=== PATIENT | male | born 1930 | race Caucasian/White ===

== ENCOUNTER 2017-02-22 15:24 | Outpatient (CLI) | payer MEDICARE | END 2017-02-22 15:25 | disposition home or self-care (01) | LOC: LAB 15:24 | PROVIDERS: ATTEND Urology | DX: C61 Malignant neoplasm of prostate (principal) | CPT/HCPCS: 84153 ==

== ENCOUNTER 2017-08-26 10:48 | Outpatient (CLI) | payer MEDICARE | END 2017-08-26 10:49 | disposition home or self-care (01) | LOC: LAB 10:48 | PROVIDERS: ATTEND Urology | DX: C61 Malignant neoplasm of prostate (principal) | CPT/HCPCS: 36415; 84153 ==

== ENCOUNTER 2018-03-10 11:46 | Outpatient (CLI) | payer MEDICARE | END 2018-03-10 11:47 | disposition home or self-care (01) | LOC: LAB 11:46 | PROVIDERS: ATTEND Urology | DX: C61 Malignant neoplasm of prostate (principal) | CPT/HCPCS: 36415; 84153 ==

== ENCOUNTER 2018-05-06 09:15 | Outpatient (CLI) | payer MEDICARE ==
[2018-05-06 17:12] LABS: BASOPHILS % (AUTO) 0.3 %; EOSINOPHILS # (AUTO) 0.2 10^3/uL (0.0-0.7); EOSINOPHILS % (AUTO) 4.1 %; LYMPHOCYTES # (AUTO) 1.5 10^3/uL (1.5-3.5); MEAN CORPUSCULAR HEMOGLOBIN 33.1 pg (27.0-31.0); MEAN CORPUSCULAR VOLUME 97.2 fL (80.0-94.0); MEAN PLATELET VOLUME 7.3 fL (7.4-11.4); MONOCYTES # (AUTO) 0.3 10^3/uL (0.0-1.0); NEUTROPHILS # (AUTO) 3.5 10^3/uL (1.5-6.6); NEUTROPHILS % (AUTO) 62.6 %; PLT - PLATELET COUNT 196 10^3/uL (130-450); RED BLOOD COUNT 3.92 10^6/uL (4.70-6.10); RED CELL DISTRIBUTION WIDTH 13.2 % (12.0-15.0); WHITE BLOOD COUNT 5.6 x10^3/uL (4.8-10.8)
[2018-05-06 17:28] LABS: ALBUMIN 4.2 g/dL (3.2-5.5); ALBUMIN/GLOBULIN RATIO 1.4 (1.0-2.2); ALKALINE PHOSPHATASE 48 IU/L (42-121); ALT ALANINE AMINOTRANSFERASE 21 IU/L (10-60); AST ASPARTATE AMINOTRANSFERASE 24 IU/L (10-42); BILIRUBIN,TOTAL 0.9 mg/dL (0.2-1.0); BUN - BLOOD UREA NITROGEN 14 mg/dL (6-20); CARBON DIOXIDE - CO2 23 mmol/L (21-32); CHLORIDE 104 mmol/L (101-111); CHOL/HDL RATIO 4.8 (<5.0); CHOLESTEROL 143 mg/dL; CREATININE 1.5 mg/dL (0.6-1.2); GFR - MDRD 44 (>89); GLUCOSE 105 mg/dL (70-100); HDL CHOLESTEROL 30 mg/dL; LDL CHOLESTEROL,CALCULATED 78 mg/dL; LDL/HDL RATIO 2.6 (<3.6); SODIUM 136 mmol/L (135-145); TOTAL PROTEIN 7.1 g/dL (6.7-8.2); VLDL CHOLESTEROL 35 mg/dL
[2018-05-06 17:38] LABS: THYROID STIMULATING HORMONE 3.43 uIU/mL (0.34-5.60)
== END 2018-05-06 09:16 | disposition home or self-care (01) ==
LOC: LAB.R 09:15
PROVIDERS: ATTEND Physician Assistant Medical
DX: F32.9 Major depressive disorder, single episode, unspecified (principal); Z79.899 Other long term (current) drug therapy; I25.10 Atherosclerotic heart disease of native coronary artery without angina pectoris; E78.2 Mixed hyperlipidemia; R53.83 Other fatigue; N18.9 Chronic kidney disease, unspecified
CPT/HCPCS: 80053; 80061; 82306; 82533; 82607; 83721; 84153; 84443; 85025

== ENCOUNTER 2018-09-17 10:14 | Outpatient (CLI) | payer MEDICARE | END 2018-09-17 10:15 | disposition home or self-care (01) | LOC: LAB 10:14 | PROVIDERS: ATTEND Urology | DX: C61 Malignant neoplasm of prostate (principal) | CPT/HCPCS: 36415; 84153 ==

== ENCOUNTER 2019-04-08 10:59 | Outpatient (CLI) | payer MEDICARE | END 2019-04-08 11:00 | disposition home or self-care (01) | LOC: LAB 10:59 | PROVIDERS: ATTEND Urology | DX: Z85.46 Personal history of malignant neoplasm of prostate (principal) | CPT/HCPCS: 36415; 84153 ==

== ENCOUNTER 2019-07-22 08:30 | Outpatient (CLI) | payer MEDICARE ==
[2019-07-22 09:14] LABS: ALBUMIN 4.1 g/dL (3.2-5.5); ALBUMIN/GLOBULIN RATIO 1.5 (1.0-2.2); ALKALINE PHOSPHATASE 60 IU/L (42-121); ALT ALANINE AMINOTRANSFERASE 21 IU/L (10-60); AST ASPARTATE AMINOTRANSFERASE 23 IU/L (10-42); BILIRUBIN,TOTAL 0.6 mg/dL (0.2-1.0); BUN - BLOOD UREA NITROGEN 16 mg/dL (6-20); CALCIUM 9.2 mg/dL (8.5-10.3); CARBON DIOXIDE - CO2 24 mmol/L (21-32); CHLORIDE 104 mmol/L (101-111); CHOL/HDL RATIO 3.8 (<5.0); CHOLESTEROL 124 mg/dL; CREATININE 1.5 mg/dL (0.6-1.2); GFR - MDRD 44 (>89); GLUCOSE 104 mg/dL (70-100); HDL CHOLESTEROL 33 mg/dL; LDL CHOLESTEROL,CALCULATED 60 mg/dL; LDL/HDL RATIO 1.8 (<3.6); SODIUM 137 mmol/L (135-145); TOTAL PROTEIN 6.9 g/dL (6.7-8.2); VLDL CHOLESTEROL 31 mg/dL
== END 2019-07-22 08:31 | disposition home or self-care (01) ==
LOC: LAB 08:30
PROVIDERS: ATTEND Internal Medicine Cardiovascular Disease
DX: E78.6 Lipoprotein deficiency (principal); I25.9 Chronic ischemic heart disease, unspecified; I35.1 Nonrheumatic aortic (valve) insufficiency
CPT/HCPCS: 36415; 80053; 80061; 83721

== ENCOUNTER 2019-10-15 11:14 | Outpatient (CLI) | payer MEDICARE | END 2019-10-15 11:15 | disposition home or self-care (01) | LOC: LAB 11:14 | PROVIDERS: ATTEND Urology | DX: C61 Malignant neoplasm of prostate (principal) | CPT/HCPCS: 36415; 84153 ==

== ENCOUNTER 2019-10-30 09:16 | Outpatient (CLI) | payer MEDICARE ==
--- NOTE | 2019-11-04 10:32 | DEXA Report ---
Reason: PROSTATE CA Procedure Date: 10/30/2019 Accession Number: [id number] / [id number] Procedure: DEX - Dexa Spine and/or Hip CPT Code: Final Report FULL RESULT: EXAM: Dexa Spine and/or Hip DATE: 10/30/2019 10:02 AM CLINICAL HISTORY: PROSTATE CA. Lupron therapy. History of osteopenia TECHNIQUE: Dual energy x-ray absorptiometry (DXA) was performed on a [employer] System. Regions measured are the AP Spine, femoral neck, and if needed forearm. COMPARISON: 08/10/2016 In accordance with the International Society for Clinical Densitometry (ISCD) guidelines, data from previous exams may be reanalyzed using current recommendations and techniques. This is done to allow a more accurate basis for comparison with the current study. FINDINGS: The data for the lumbar spine is as follows: BMD (g/cm/cm) T-SCORE Z-SCORE REGION L1 0.890 -2.3 -1.5 L2 1.086 -1.3 -0.5 L3 1.247 0.1 0.8 TOTAL 1.081 -1.1 -0.3 NOTE: All evaluable vertebrae are used for classification The data for the hip is as follows: BMD (g/cm/cm) T-SCORE Z-SCORE REGION Neck 0.822 -1.9 -0.2 TOTAL 0.888 -1.5 0.0 NOTE: The femoral neck or total proximal femur, whichever is lowest, is used for classification. DXA RESULTS SUMMARY: Spine SCAN DATE AGE BMD CHANGE VS CHANGE VS PREVIOUS PREVIOUS % 10[age]30/2019 [age] 1.081 -0.015 -1.4 08/10/2016 [age] 1.096 * Denotes significant change at the 95% confidence level. Denotes dissimilar scan types or analysis methods. DXA RESULTS SUMMARY: Hip SCAN DATE AGE BMD CHANGE VS CHANGE VS PREVIOUS PREVIOUS % 10[age]30/2019 88.8 0.888 -0.002 -0.2 08/10/2016 85.6 0.890 * Denotes significant change at the 95% confidence level. Denotes dissimilar scan types or analysis methods. IMPRESSION: THE WHO CLASSIFICATION BASED ON THE INTERNATIONAL REFERENCE STANDARD IS OSTEOPENIA, REFERENCE LEFT FEMORAL NECK. THE FRACTURE RISK IS INCREASED. RECOMMENDATION: Patients with diagnosis of osteoporosis or osteopenia should have regular bone mineral density assessment. For those eligible for Medicare, routine testing is allowed once every 2 years. Testing frequency can be increased for patients who have rapidly progressing disease or for those who are receiving medical therapy to restore bone mass. COMMENT: World Health Organization (WHO) definitions for osteoporosis and osteopenia: NORMAL BMD: T-score at -1.0 or higher, fracture risk is low OSTEOPENIA BMD: T-score between -1.0 and -2.5, fracture risk is increased. OSTEOPOROSIS BMD: T-score at -2.5 or lower, fracture risk is high. National Osteoporosis Foundation recommends: 1. Obtain adequate dietary calcium (at least 1200 mg per day) and vitamin D (400-800 international units per day). 2. Participate, as appropriate, in regular weightbearing and muscle-strengthening exercise. 3. Avoid tobacco use and reduce alcohol and caffeine intake. 4. For more detailed information see the website at www.NOF.org.
== END 2019-10-30 09:17 | disposition home or self-care (01) ==
LOC: DI 09:16
PROVIDERS: ATTEND Urology
DX: M85.89 Other specified disorders of bone density and structure, multiple sites (principal); C61 Malignant neoplasm of prostate
CPT/HCPCS: 77080

== ENCOUNTER 2020-04-13 10:11 | Outpatient (CLI) | payer MEDICARE | END 2020-04-13 10:12 | disposition home or self-care (01) | LOC: LAB 10:11 | PROVIDERS: ATTEND Urology | DX: C61 Malignant neoplasm of prostate (principal) | CPT/HCPCS: 36415; 84153 ==

== ENCOUNTER 2020-11-01 13:43 | Outpatient (CLI) | payer MEDICARE | END 2020-11-01 13:44 | disposition home or self-care (01) | LOC: LAB 13:43 | PROVIDERS: ATTEND Urology | DX: C61 Malignant neoplasm of prostate (principal) | CPT/HCPCS: 36415; 84153 ==

== ENCOUNTER 2021-06-07 12:01 | Outpatient (CLI) | payer MEDICARE | END 2021-06-07 12:02 | disposition home or self-care (01) | LOC: LAB 12:01 | PROVIDERS: ATTEND Urology | DX: C61 Malignant neoplasm of prostate (principal) | CPT/HCPCS: 36415; 84153 ==

== ENCOUNTER 2021-07-31 14:35 | Outpatient (CLI) | payer MEDICARE ==
--- NOTE | 2021-07-31 16:21 | XRAY Report ---
PROCEDURE: Hip w/Pelvis 2-3V RT INDICATIONS: LBP,RT HIP PAIN TECHNIQUE: AP pelvis with lateral view(s) of the bilateral hip(s). COMPARISON: None. FINDINGS: Bones: No fractures or dislocations. Pelvic ring appears intact. No suspicious bony lesions. Mild joint space narrowing and periarticular osteophyte formation at the hip joints bilaterally. Soft tissues: The visualized bowel gas pattern is normal. No suspicious soft tissue calcifications. IMPRESSION: Bilateral hip osteoarthritis. No acute fracture. No osseous lesion. If symptoms and/or c linical suspicion for pathology continue, further assessment with repeat plain films, or advanced luh ging (e.g., CT, MRI, or bone scan) is recommended for further assessment. Reviewed by: Emily Caraballo MD on 07/31/2021 4:20 PM PDT Approved by: Emily Caraballo MD on 07/31/2021 4:20 PM PDT Station ID: [id number]
--- NOTE | 2021-07-31 16:21 | XRAY Report ---
PROCEDURE: Lumbar Spine 2 View INDICATIONS: LBP,RT HIP PAIN TECHNIQUE: 2 views of the lumbar spine were acquired. COMPARISON: None. FINDINGS: Bones: 5 [id number] vertebrae are present. There is mild levoscoliosis and grade 1 anterolisth esis of L4 on L5. No vertebral body compression fractures. No suspicious bony lesions. There is deg enerative disc disease, severe at L4-L5, moderate at L3-L4 and L5-S1, mild at L1-L2 and L2-L3. Severe facet arthropathy at L3-L4, L4-L5 and L5-S1. Soft tissues: Overlying bowel gas pattern is normal. No suspicious soft tissue calcifications. IMPRESSION: 1. 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 2. Mild levoscoliosis. 3. Grade 1 anterolisthesis of L4-L5 Reviewed by: Ayden Dalton MD on 07/31/2021 4:20 PM PDT Approved by: Ayden Dalton MD on 07/31/2021 4:20 PM PDT Station ID: [id number]
== END 2021-07-31 14:36 | disposition home or self-care (01) ==
LOC: DI 14:35
PROVIDERS: ATTEND Internal Medicine
DX: M25.551 Pain in right hip (principal); M16.0 Bilateral primary osteoarthritis of hip; M54.50 Low back pain, unspecified; M51.37 Other intervertebral disc degeneration, lumbosacral region; M41.86 Other forms of scoliosis, lumbar region

== ENCOUNTER 2021-08-02 17:38 | Outpatient (CLI) | payer MEDICARE | END 2021-08-02 17:39 | disposition critical access hospital (66) | LOC: EMS 17:38 | DX: R41.82 Altered mental status, unspecified (principal); R45.1 Restlessness and agitation | CPT/HCPCS: A0425; A0429 ==

== ENCOUNTER 2021-08-02 17:43 | Observation (INO) | payer MEDICARE ==
[2021-08-02] MEDS ORDERED: HALOPERIDOL 5 MG/ML VIAL IVP ONE ×2 (18:02→18:50)
--- NOTE | 2021-08-02 18:06 | ED Physician Documentation ---
PD HPI ALTERED MENTAL STATUS - Stated complaint Stated Complaint: AMS - Chief complaint Chief Complaint: Neuro - History obtained from History obtained from: Patient, EMS - History of Present Illness Basline status: Alert and oriented X 3, Ambulatory - Additional information Additional information: 89-year-old male lives at home with his family, according to EMS he has had altered mental status for the past several days. They brought him in today for continued altered mental status. Patient unable to give any history. According to EMS he is normally alert and oriented x3 and can usually take care of himself. They state that the family has said that he has not been sick recently. No changes to medications. They state he is only taking Ambien and Ativan at home. Upon review of his chart it appears that he has a history of prostate cancer. Patient's caregiver arrived And I spoke with her at length. She states that he lives alone, is usually alert and oriented. 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 She states that a few weeks ago he did have transient altered mental status but this seemed to resolve quickly. He did have several falls, but x-rays were performed by his doctor and no fractures found. He has not been complaining of any abdominal pain. Has not had any diarrhea or constipation. No urinary symptoms that she is aware of. She states that this is very out of character. He had been on Ambien but ran out and was changed over to either amitriptyline or no rtriptyline. He is also on Ativan at home. Review of Systems Unable to obtain: AMS, Confused PD PAST MEDICAL HISTORY - Past Medical History Cardiovascular: High cholesterol, Other Respiratory: None Endocrine/Autoimmune: None GI: None : Benign prostate hypertrophy, Retention HEENT: None, Chronic vision loss, Chronic hearing loss Psych: Depression, Anxiety Musculoskeletal: None Derm: None - Past Surgical History Past Surgical History: Yes General: Colonoscopy, Other Cardiovascular: Coronary stent, Angioplasty HEENT: Tonsil/Adenoidectomy - Present Medications Home Medications: Ambulatory Orders Medication Instructions Recorded Confirmed Alprazolam [Alprazolam Odt] 0.25 mg PO 02/06/13 02/09/13 Aspirin Chewable [St King 81 mg PO DAILY 04/28/13 04/28/13 Aspirin] Cholecalciferol [Vitamin D3] 400 unit PO DAILY 04/28/13 04/28/13 Metoprolol Succinate 25 mg PO DAILY 04/28/13 04/28/13 Atorvastatin [Lipitor] 20 mg PO DAILY 12/28/13 12/28/13 Bicalutamide [Casodex] 50 mg PO DAILY 12/28/13 12/28/13 Cranberry Fruit Extract/Vit C [Azo 1 each PO 12/28/13 12/28/13 Cranberry Softgel] Leuprolide [Lupron] 7.5 mg IM 12/28/13 12/28/13 - Allergies Allergies/Adverse Reactions: Allergies Allergy/AdvReac Type Severity Reaction Status Date / Time levofloxacin [From Levaquin] Allergy Severe Hallucinati Verified 08/02/21 17:54 ons erythromycin base Allergy Intermediate Nausea/EMES Verified 08/02/21 17:54 [Erythromycin Base] IS Sulfa (Sulfonamide Allergy Intermediate UNKNOWN Verified 08/02/21 17:54 Antibiotics) Macrolide Antibiotics Allergy nausea/emes Verified 08/02/21 17:54 is - Social History Does the pt smoke?: No Smoking Status: Never smoker Does the pt drink ETOH?: Yes Does the pt have substance abuse?: No - Immunizations Immunizations are current?: Yes - POLST Patient has POLST: No PD ED PE NORMAL - Vitals Vital signs reviewed: Yes - General General: Well developed/nourished - HEENT HEENT: Atraumatic, PERRL, Moist mucous membranes, Pharynx benign - Neck Neck: Supple, no meningeal sign - Cardiac Cardiac: RRR, Strong equal pulses - Respiratory Respiratory: No respiratory distress, Clear bilaterally - Abdomen Abdomen: Soft, Non tender, Non distended - Back Back: No CVA TTP, No spinal TTP - Derm Derm: Warm and dry, No rash - Extremities Extremities: No edema, No calf tenderness / cord - Neuro Neuro: Other (alert, irritated.) - Free text exam Free text exam: Patient is very restless and agitated upon presentation to the emergency department. He is mostly nonverbal. At one point he did say please. At one point with EMS he did state "dammit". Results - Vitals Vitals: Vital Signs - 24 hr 08/02/21 08/02/21 17:51 19:52 Temperature 36.2 C L Heart Rate 91 98 Respiratory 21 12 Rate Blood Pressure 192/101 H 173/149 H O2 Saturation 100 100 Oxygen O2 Source Room air - Labs Labs: Laboratory Tests 08/02/21 08/02/21 08/02/21 18:30 18:30 18:30 WBC 7.3 RBC 4.23 L Hgb 14.0 Hct 40.7 L MCV 96.2 H MCH 33.1 H MCHC 34.4 RDW 13.1 Plt Count 165 MPV 8.2 Neut # (Auto) 4.8 Lymph # (Auto) 2.0 [place] # (Auto) 0.5 Eos # (Auto) 0.1 Baso # (Auto) 0.0 Absolute Nucleated RBC 0.00 Nucleated RBC % 0.0 Sodium 132 L Potassium 3.6 Chloride 101 Carbon Dioxide 19 L Anion Gap 12.0 BUN 19 Creatinine 1.3 H Estimated GFR (MDRD) 52 L Glucose 125 H Lactic Acid Calcium 9.1 Total Bilirubin 0.9 AST 46 H ALT 48 Alkaline Phosphatase 76 Total Protein 7.1 Albumin 4.4 Globulin 2.7 Albumin/Globulin Ratio 1.6 Lipase 25 TSH 2.91 Urine Color Urine Clarity Urine pH Ur Specific [place] Urine Protein Urine Glucose (UA) Urine Ketones Urine Occult Blood Urine Nitrite Urine Bilirubin Urine Urobilinogen Ur Leukocyte Esterase Ur Microscopic Review Urine Culture Comments Nasal Adenovirus (PCR) Nasal B. parapertussis DNA (PCR) Nasal Coronavir 229E PCR Nasal Coronavir HKU1 PCR Nasal Coronavir NL63 PCR Nasal Coronavir OC43 PCR Nasal Enterovir/Rhinovir PCR Nasal Influenza B PCR Nasal Influenza A PCR Nasal Parainfluen 1 PCR Nasal Parainfluen 2 PCR Nasal Parainfluen 3 PCR Nasal Parainfluen 4 PCR Nasal RSV (PCR) Nasal B.pertussis DNA PCR Nasal C.pneumoniae (PCR) Javier Human Metapneumo PCR Nasal M.pneumoniae (PCR) Nasal SARS-CoV-2 (PCR) Salicylates < 6.0 Urine Opiates Screen Ur Oxycodone Screen Urine Methadone Screen Ur Propoxyphene Screen Acetaminophen < 10 L Ur Barbiturates Screen Ur Tricyclics Screen Ur Phencyclidine Scrn Ur Amphetamine Screen U Methamphetamines Scrn U Benzodiazepines Scrn Urine Cocaine Screen U Cannabinoids Screen Ethyl Alcohol < 5.0 08/02/21 08/02/21 08/02/21 18:30 19:40 19:49 WBC RBC Hgb Hct MCV MCH MCHC RDW Plt Count MPV Neut # (Auto) Lymph # (Auto) [place] # (Auto) Eos # (Auto) Baso # (Auto) Absolute Nucleated RBC Nucleated RBC % Sodium Potassium Chloride Carbon Dioxide Anion Gap BUN Creatinine Estimated GFR (MDRD) Glucose Lactic Acid 1.8 Calcium Total Bilirubin AST ALT Alkaline Phosphatase Total Protein Albumin Globulin Albumin/Globulin Ratio Lipase TSH Urine Color YELLOW Urine Clarity CLEAR Urine pH 6.5 Ur Specific [place] 1.020 Urine Protein NEGATIVE Urine Glucose (UA) NEGATIVE Urine Ketones 15 H Urine Occult Blood TRACE-INTA Urine Nitrite NEGATIVE Urine Bilirubin NEGATIVE Urine Urobilinogen 0.2 (NORMAL) Ur Leukocyte Esterase NEGATIVE Ur Microscopic Review NOT INDICATED Urine Culture Comments NOT INDICATED Nasal Adenovirus (PCR) NOT DETECTED Nasal B. parapertussis DNA (PCR) NOT DETECTED Nasal Coronavir 229E PCR NOT DETECTED Nasal Coronavir HKU1 PCR NOT DETECTED Nasal Coronavir NL63 PCR NOT DETECTED Nasal Coronavir OC43 PCR NOT DETECTED Nasal Enterovir/Rhinovir PCR NOT DETECTED Nasal Influenza B PCR NOT DETECTED Nasal Influenza A PCR NOT DETECTED Nasal Parainfluen 1 PCR NOT DETECTED Nasal Parainfluen 2 PCR NOT DETECTED Nasal Parainfluen 3 PCR NOT DETECTED Nasal Parainfluen 4 PCR NOT DETECTED Nasal RSV (PCR) NOT DETECTED Nasal B.pertussis DNA PCR NOT DETECTED Nasal C.pneumoniae (PCR) NOT DETECTED Javier Human Metapneumo PCR NOT DETECTED Nasal M.pneumoniae (PCR) NOT DETECTED Nasal SARS-CoV-2 (PCR) NOT DETECTED Salicylates Urine Opiates Screen NEGATIVE Ur Oxycodone Screen NEGATIVE Urine Methadone Screen NEGATIVE Ur Propoxyphene Screen NEGATIVE Acetaminophen Ur Barbiturates Screen NEGATIVE Ur Tricyclics Screen NEGATIVE Ur Phencyclidine Scrn NEGATIVE Ur Amphetamine Screen NEGATIVE U Methamphetamines Scrn NEGATIVE U Benzodiazepines Scrn POSITIVE H Urine Cocaine Screen NEGATIVE U Cannabinoids Screen NEGATIVE Ethyl Alcohol - Rads (name of study) head CT Radiology: Final report received, EMP read contemporaneously, See rad report cxr Radiology: Final report received, EMP read contemporaneously, See rad report PD MEDICAL DECISION MAKING - ED course Complexity details: reviewed results, re-evaluated patient, considered differential, d/w patient, d/w family, d/w organizational effectiveness consultant ED course: No acute findings on head CT or chest x-ray. Unclear etiology of his altered mental status. No significant acute laboratory abnormalities to explain his symptoms. Possible Ativan induced? Possible Ambien withdrawal? He was given Haldol and Ativan here with mild improvement. He was placed in soft restraints as he was continuing to pull out his IV and pull out medical devices. He was also attempting to climb out of bed. Given his significant altered mental status, we will admit the patient for further care. Discussed the case with Dr. Alvarado, hospitalist who accepts This document was made in part using voice recognition software. While efforts are made to proofread this document, sound alike and grammatical errors may occur. Departure - Departure Disposition: [facility] DC/Xfer Clinical Impression: Altered mental status Qualifiers: Altered mental status type: delirium Qualified Code(s): R41.0 - Disorientation, unspecified Condition: Stable Discharge Date/Time: 08/02/21 21:40
[2021-08-02 18:40] LABS: BASOPHILS % (AUTO) 0.5 %; EOSINOPHILS # (AUTO) 0.1 10^3/uL (0.0-0.7); EOSINOPHILS % (AUTO) 0.8 %; HCT - HEMATOCRIT 40.7 % (42.0-52.0); LYMPHOCYTES % (AUTO) 26.6 %; MEAN CORPUSCULAR HEMOGLOBIN 33.1 pg (27.0-31.0); MEAN CORPUSCULAR HGB CONC 34.4 g/dL (32.0-36.0); MEAN CORPUSCULAR VOLUME 96.2 fL (80.0-94.0); MEAN PLATELET VOLUME 8.2 fL (7.4-11.4); MONOCYTES # (AUTO) 0.5 10^3/uL (0.0-1.0); MONOCYTES % (AUTO) 6.4 %; NEUTROPHILS # (AUTO) 4.8 10^3/uL (1.5-6.6); NEUTROPHILS % (AUTO) 65.4 %; PLT - PLATELET COUNT 165 10^3/uL (130-450); RED BLOOD COUNT 4.23 10^6/uL (4.70-6.10); RED CELL DISTRIBUTION WIDTH 13.1 % (12.0-15.0); WHITE BLOOD COUNT 7.3 x10^3/uL (4.8-10.8)
[2021-08-02 18:56] LABS: ACETAMINOPHEN < 10 ug/mL (10-30); ALBUMIN 4.4 g/dL (3.2-5.5); ALBUMIN/GLOBULIN RATIO 1.6 (1.0-2.2); ALKALINE PHOSPHATASE 76 IU/L (42-121); ALT ALANINE AMINOTRANSFERASE 48 IU/L (10-60); AST ASPARTATE AMINOTRANSFERASE 46 IU/L (10-42); BILIRUBIN,TOTAL 0.9 mg/dL (0.2-1.0); BUN - BLOOD UREA NITROGEN 19 mg/dL (6-20); CALCIUM 9.1 mg/dL (8.5-10.3); CARBON DIOXIDE - CO2 19 mmol/L (21-32); CHLORIDE 101 mmol/L (101-111); CREATININE 1.3 mg/dL (0.6-1.2); ETOH - ETHANOL < 5.0 mg/dL; GFR - MDRD 52 (>89); GLUCOSE 125 mg/dL (70-100); LIPASE 25 U/L (22-51); POTASSIUM 3.6 mmol/L (3.5-5.0); SALICYLATE < 6.0 mg/dL; SODIUM 132 mmol/L (135-145); TOTAL PROTEIN 7.1 g/dL (6.7-8.2)
[2021-08-02] MEDS ORDERED: LORazepam 2 MG/ML VIAL IVP STA (19:11)
--- NOTE | 2021-08-02 19:22 | CT Report ---
PROCEDURE: HEAD WO INDICATIONS: altered mental status x 3-4 days TECHNIQUE: Noncontrast 4.5 mm thick angled axial sections acquired from the foramen magnum to the vertex. For r adiation dose reduction, the following was used: automated exposure control, adjustment of mA and/or kV according to patient size. COMPARISON: None. FINDINGS: Image quality: Partially degraded by motion artifact. CSF spaces: Basal cisterns are patent. No extra-axial fluid collections. Ventricles are normal in size and shape. Brain: No midline shift. No intracranial masses or hemorrhage. De La Garza-white matter interface is norm al. Skull and face: Calvarium and visualized facial bones are intact, without suspicious lesions. Sinuses: Visualized sinuses and mastoids are clear. 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 No acute process. Reviewed by: Emily Caraballo MD on 08/02/2021 7:21 PM PDT Approved by: Emily Caraballo MD on 08/02/2021 7:21 PM PDT Station ID: [id number]
[2021-08-02 19:54] LABS: MUDS CUTOFF CONCENTRATIONS CUTOFF CONC BELOW:
[2021-08-02 19:56] LABS: BILIRUBIN,URINE NEGATIVE (NEGATIVE); GLUCOSE, URINE (UA) NEGATIVE (NEGATIVE); KETONES,URINE (UA) 15 mg/dL (NEGATIVE); LEUKOCYTE ESTERASE, URINE NEGATIVE (NEGATIVE); NITRITE,URINE NEGATIVE (NEGATIVE); OCCULT BLOOD,URINE TRACE-INTA (NEGATIVE); PH,URINE 6.5 PH (5.0-7.5); PROTEIN,URINE NEGATIVE (NEGATIVE); UROBILINOGEN,URINE 0.2 (NORMAL) E.U./dL (NORMAL)
[2021-08-02 19:58] LABS: CLARITY,URINE CLEAR (CLEAR)
[2021-08-02 20:10] LABS: AMPHETAMINE SCREEN,URINE NEGATIVE (NEGATIVE); BARBITURATE SCREEN,UR NEGATIVE (NEGATIVE); BENZODIAZEPINES SCREEN, URINE POSITIVE (NEGATIVE); COCAINE SCREEN URINE NEGATIVE (NEGATIVE); METHADONE SCREEN, URINE NEGATIVE (NEGATIVE); METHAMPHETAMINES SCREEN, URINE NEGATIVE (NEGATIVE); OPIATE SCREEN, URINE NEGATIVE (NEGATIVE); THC CANNABINOID SCREEN, URINE NEGATIVE (NEGATIVE); TRICYCLIC ANTIDEPRESSANT,URINE NEGATIVE (NEGATIVE)
[2021-08-02 20:11] LABS: OXYCODONE SCREEN, URINE NEGATIVE (NEGATIVE); PROPOXYPHENE SCREEN, URINE NEGATIVE (NEGATIVE)
[2021-08-02] MEDS ORDERED: SODIUM CHLORIDE FLUSH 0.9% 10 ML SYRINGE IVP PRN (20:48)
[2021-08-02] MEDS ORDERED: ONDANSETRON 4 MG/2 ML VIAL IVP PRN (20:48)
--- NOTE | 2021-08-02 20:52 | XRAY Report ---
PROCEDURE: Chest 1 View X-Ray INDICATIONS: cough, aloc TECHNIQUE: One view of the chest was acquired. COMPARISON: None FINDINGS: Surgical changes and devices: None. Lungs and pleura: No pleural effusions or pneumothorax. Lungs are clear. Mediastinum: Mediastinal contours appear normal. Heart size is normal. Bones and chest wall: No suspicious bony lesions. Overlying soft tissues appear unremarkable. IMPRESSION: No acute process. Reviewed by: Emily Caraballo MD on 08/02/2021 8:51 PM PDT Approved by: Emily Caraballo MD on 08/02/2021 8:51 PM PDT Station ID: [id number]
--- NOTE | 2021-08-02 20:52 | HISTORY & PHYSICAL EXAMINATION ---
Chief Complaint - Chief Complaint Chief Complaint: altered mental status History of Present Illness - Admitted From Admitted From:: [facility] ED - History Obtained From Records Reviewed: yes History obtained from: ED physician and notes Exam Limitations: altered mental status - History of Present Illness HPI Comment/Other: Patient is an 89-year-old male who lives alone at home but has a caregiver who stays at nights and another who comes in every couple of days to check on him during the day. He lives in [place] and has been a now for 14 years. He has a brother who lives in [place]. He was brought in by EMS. According to EMS he has been altered for several days. His brother reports that he has been altered for about 4 days. He is normally very alert and orietned X4, intelligent, able to carry out a conversation without difficulty and able to take care of himself. Per the ED physician's note: "Patient's caregiver arrived And I spoke with her at length. She states that he lives alone, is usually alert and oriented. 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 She states that a few weeks ago he did have transient altered mental status but this seemed to resolve quickly. He did have several falls, but x-rays were performed by his doctor and no fractures found. He has not been complaining of any abdominal pain. Has not had any diarrhea or constipation. No urinary symptoms that she is aware of. She states that this is very out of character. He had been on Ambien but ran out and was changed over to either amitriptyline or nortriptyline. He is also on Ativan at home." At bedside the patient does not respond to any commands. He appeared to be resting comfortably. With tactile stimuli he opens his eyes. He moves all extremities but not to command. There is no focal neurologic deficit. He has bruises on his face legs and. He also has a rash on his back. Further history is very limited due to patient's current altered mental status. History - Past Medical History Cardiovascular: reports: High cholesterol, Coronary artery disease, [place], Other Respiratory: reports: None Endocrine/Autoimmune: reports: None GI: reports: None : reports: Benign prostate hypertrophy, Retention, Other (Prostate cancer) HEENT: reports: None, Chronic vision loss, Chronic hearing loss Psych: reports: Depression, Anxiety Musculoskeletal: reports: None Derm: reports: None MRSA Hx?: No Other Past Medical History: Prostate cancer - Past Surgical History General: reports: Colonoscopy, Other Cardiovascular: reports: Coronary stent, Angioplasty HEENT: reports: Tonsil/Adenoidectomy - Family & Social History Family History Comment/Other: Limited due to altered mental status Living arrangement: At home Living Situation: Alone (has a caregiver) Social History Notes: Currently limited due to altered mental status - POLST Patient has POLST: No POLST Status: Full Code Meds/Allgy - Home Medications Home Medications: Ambulatory Orders Medication Instructions Recorded Confirmed Alprazolam [Alprazolam Odt] 0.25 mg PO 02/06/13 02/09/13 Aspirin Chewable [St King 81 mg PO DAILY 04/28/13 04/28/13 Aspirin] Cholecalciferol [Vitamin D3] 400 unit PO DAILY 04/28/13 04/28/13 Metoprolol Succinate 25 mg PO DAILY 04/28/13 04/28/13 Atorvastatin [Lipitor] 20 mg PO DAILY 12/28/13 12/28/13 Bicalutamide [Casodex] 50 mg PO DAILY 12/28/13 12/28/13 Cranberry Fruit Extract/Vit C [Azo 1 each PO 12/28/13 12/28/13 Cranberry Softgel] Leuprolide [Lupron] 7.5 mg IM 12/28/13 12/28/13 - Allergies Allergies/Adverse Reactions: Allergies Allergy/AdvReac Type Severity Reaction Status Date / Time levofloxacin [From Levaquin] Allergy Severe Hallucinati Verified 08/02/21 17:54 ons erythromycin base Allergy Intermediate Nausea/EMES Verified 08/02/21 17:54 [Erythromycin Base] IS Sulfa (Sulfonamide Allergy Intermediate UNKNOWN Verified 08/02/21 17:54 Antibiotics) Macrolide Antibiotics Allergy nausea/emes Verified 08/02/21 17:54 is Review of Systems - Other Findings Other Findings: A 12 point review of system is limited due to altered mental status Prior Level of Functionality: Patient lives alone but has a caregivers Exam - Vital Signs Vital Signs: Vital Signs x48h Temp Pulse Resp BP Pulse Ox 08/02/21 19:52 98 12 173/149 H 100 08/02/21 17:51 36.2 C L 91 21 192/101 H 100 - Physical Exam General Appearance: positive: No acute distress, Other (Not oriented to self, place, time or reason. Somnolent. Opens eyes to tactile stimuli) Eyes Bilateral: positive: PERRL, EOMI ENT: positive: No signs of dehydration Neck: positive: No JVD, Trachea midline Respiratory: positive: Chest non-tender, No respiratory distress, Breath sounds nml. negative: Wheezes, Rales, Rhonchi Cardiovascular: positive: Regular rate & rhythm, No murmur Abdomen: positive: Non-tender, Nml bowel sounds, No distention. negative: Guarding, Rebound Back: positive: Nml inspection Skin: positive: Warm, Dry, Skin rash (pruiritic rash on back), Other (bruises on left side of face, arms and legs) Extremities: positive: Non-tender, Full ROM, Nml appearance, No pedal edema Neurologic/Psychiatric: positive: Disoriented to person, Disoriented to place, Disoriented to time Conclusion/Plan - Problem List (1) Altered mental status Conclusion/Plan: Etiology undetermined Medication suspected Patient's toxicology was positive for benzo's. He is on alprazolam. It was negative for any other substance Patient was recently switched from ambien to amitryptilline. Will allow for observation overnight an reassess in the morning Patient has history of prostate cancer CT brain without contrast was unremarkable. MRI of brain with out contrast ordered for further evaluation Qualifiers: Altered mental status type: delirium Qualified Code(s): R41.0 - Disorien tation, unspecified - Lab Results Fish Bones: 08/02/21 18:30 08/02/21 18:30 Core Measures - Anticipated LOS I expect patient to be DC'd or transferred within 96 hours.: Yes - DVT/VTE - Prophylaxis VTE/DVT Device ordered at admit?: Yes
[2021-08-02 20:58] LABS: B. PARAPERTUSSIS- RESP PCR PAN NOT DETECTED; B. PERTUSSIS- RESP PCR PANEL NOT DETECTED; C. PNEUMONIAE- RESP PCR PANEL NOT DETECTED; CORONAVIRUS 229E-RESP PCR NOT DETECTED; CORONAVIRUS HKU1-RESP PCR NOT DETECTED; CORONAVIRUS NL63-RESP PCR NOT DETECTED; CORONAVIRUS OC43-RESP PCR NOT DETECTED; HUMAN METAPNEUMOVIRUS NOT DETECTED; INFLUENZA A- RESP PCR PANEL NOT DETECTED; INFLUENZA B - RESP PCR PANEL NOT DETECTED; M. PNEUMONIAE- RESP PCR PANEL NOT DETECTED; PARAINFLUENZA VIRUS 1 NOT DETECTED; PARAINFLUENZA VIRUS 2 NOT DETECTED; PARAINFLUENZA VIRUS 3 NOT DETECTED; PARAINFLUENZA VIRUS 4 NOT DETECTED; RHINOVIRUS/ENTEROVIRUS NOT DETECTED; RSV- RESP PCR PANEL NOT DETECTED; SARS-CoV-2 -RESP PCR PANEL NOT DETECTED
[2021-08-02] MEDS: SODIUM CHLORIDE 0.9% 1,000 ML IV SCH (21:41)
[2021-08-02] MEDS: SODIUM CHLORIDE FLUSH 0.9% 10 ML SYRINGE IVP SCH (23:40)
[2021-08-03 06:04] LABS: BASOPHILS % (AUTO) 0.2 %; HCT - HEMATOCRIT 38.8 % (42.0-52.0); HGB - HEMOGLOBIN 13.5 g/dL (14.0-18.0); LYMPHOCYTES # (AUTO) 0.8 10^3/uL (1.5-3.5); LYMPHOCYTES % (AUTO) 6.3 %; MEAN CORPUSCULAR HEMOGLOBIN 33.5 pg (27.0-31.0); MEAN CORPUSCULAR HGB CONC 34.8 g/dL (32.0-36.0); MEAN CORPUSCULAR VOLUME 96.3 fL (80.0-94.0); MEAN PLATELET VOLUME 8.3 fL (7.4-11.4); MONOCYTES # (AUTO) 0.7 10^3/uL (0.0-1.0); MONOCYTES % (AUTO) 5.7 %; NEUTROPHILS # (AUTO) 10.6 10^3/uL (1.5-6.6); NEUTROPHILS % (AUTO) 87.5 %; PLT - PLATELET COUNT 175 10^3/uL (130-450); RED BLOOD COUNT 4.03 10^6/uL (4.70-6.10); RED CELL DISTRIBUTION WIDTH 12.9 % (12.0-15.0); WHITE BLOOD COUNT 12.1 x10^3/uL (4.8-10.8)
[2021-08-03 06:13] LABS: CALCIUM 8.7 mg/dL (8.5-10.3); POTASSIUM 3.7 mmol/L (3.5-5.0)
[2021-08-03] MEDS: SODIUM CHLORIDE 0.9% 1,000 ML IV SCH ×2 (08:04→16:08)
[2021-08-03] MEDS ORDERED: LORazepam 2 MG/ML VIAL IVP SCH (11:13)
[2021-08-03] MEDS: SODIUM CHLORIDE FLUSH 0.9% 10 ML SYRINGE IVP SCH ×2 (11:35→17:10)
--- NOTE | 2021-08-03 13:04 | MRI Report ---
PROCEDURE: Brain W/O INDICATIONS: altered mental status TECHNIQUE: Noncontrast axial T1 spin echo, axial T2 fast spin echo, sagittal and axial FLAIR, coronal T2 fast sp in echo, axial gradient echo, axial diffusion and ADC through the brain. COMPARISON: Correlation is made with prior head CT, 08/02/2021. FINDINGS: Image quality: Motion artifact is noted. Images repeated, with some improvement. CSF Spaces: Basal cisterns are patent. No extra-axial fluid collections. Ventricles are normal in size and shape. Brain: No intracranial masses or hemorrhage. De La Garza/white matter interface is normal. Brainstem appe ars normal. Diffusion-weighted images demonstrate no acute ischemic insult. No chronic ischemic ins ults. Normal intravascular flow voids are present. Age-appropriate brain parenchymal volume loss an d chronic small vessel ischemic change can be seen. Skull and face: Calvarium has normal marrow signal. Orbits appear normal. Sinuses: Sinuses and mastoids are clear. IMPRESSION: No findings of acute or subacute infarction are seen. Age-appropriate brain parenchymal volume loss and chronic small vessel ischemic change can be seen. Study limited by motion artifact. Reviewed by: Lowell Solares MD on 08/03/2021 12:02 PM [id number] Approved by: Lowell Solares MD on 08/03/2021 12:02 PM [email or web address] Station ID: [id number]
--- NOTE | 2021-08-03 13:54 | PROVIDER PROGRESS NOTE ---
Assessment/Plan - Problem List (1) Altered mental status Qualifiers: Altered mental status type: delirium Qualified Code(s): R41.0 - Disorientation, unspecified Assessment/Plan: 08/[address] pt's MRI [address] of head are unremarkable for acute finding. pt also does not present focal Neuro deficit. pt was still confused at the drop board worker when I assessed pt but nurse report pt became more clear and more oriented after that. pt need ativan for his MRI of brain, now pt is sleeping. Updated these information to pt's umesh Bryan, and answered his questions. continue neuro check, hold his home Ambien, Ativan, continue IVF and diet. suspected Medication-caused (2)prostate cancer pt has hx of prostate cancer. ORACLE HRMS DEVELOPER report pt urinated at the morning. pt has no pain complaints at this time. pt pt may continue followup with his oncologist as out-pt (3)HTN stable, will resume his home meds after confirmed (4)HLD will resume his home meds - Current Meds Current Meds: Current Medications Generic Name Dose Route Start Last Admin Trade Name [place] PRN Reason Stop Dose Admin Lorazepam 1 mg 08/03/21 11:13 08/03/21 11:35 Lorazepam 2 Mg/Ml Vial IVP 08/03/21 23:00 1 mg ONCE LUIS Administration Sodium Chloride 10 ml 08/03/21 01:00 08/03/21 11:35 Sodium Chloride Flush 0.9% 10 Ml Syringe IVP 10 ml 0100,0900,1700 LUIS Administration - Lab Result Fish Bone Diagrams: 08/03/21 05:53 08/03/21 05:53 - Additional Planning My Orders: My Active Orders 08/03/21 11:13 LORazepam INJ [Ativan Inj (Vial)] 1 mg IVP ONCE 08/03/21 13:38 Sodium Chloride 0.9% [Normal Saline 0.9%] 1,000 ml IV 83.3 mls/hr Subjective - Subjective Nursing Reports: Confused Objective Vital Signs: Vital Signs - 24 hr 08/02/21 08/02/21 08/02/21 17:51 19:52 21:30 Temperature 36.2 C L Heart Rate 91 98 90 Heart Rate [ Brachial] Respiratory 21 12 18 Rate Blood Pressure 192/101 H 173/149 H Blood Pressure [Right Brachial artery] O2 Saturation 100 100 98 08/02/21 08/02/21 08/03/21 21:40 23:42 05:33 Temperature 36.5 C 36.4 C L 36.5 C Heart Rate Heart Rate [ 96 82 90 Brachial] Respiratory 20 20 20 Rate Blood Pressure Blood Pressure 172/97 H 162/81 H 158/89 H [Right Brachial artery] O2 Saturation 95 96 95 08/03/21 08/03/21 09:00 12:44 Temperature 36.6 C 36.4 C L Heart Rate Heart Rate [ 87 81 Brachial] Respiratory 17 18 Rate Blood Pressure Blood Pressure 164/83 H 153/90 H [Right Brachial artery] O2 Saturation 96 96 Oxygen O2 Source Room air I&O (Last 24 Hrs): Intake and Output Totals x24h 08/01/21 08/02/21 08/03/21 23:59 23:59 23:59 Intake Total 1370 Output Total 0 Balance 0 1370 General: Alert, No acute distress HEENT: Atraumatic Neck: Supple Lymphatic: no adenopathy Neuro: Alert, Non Focal Cardiovascular: Regular rate, Normal S1, Normal S2 Respiratory: Chest non-tender, No respiratory distress Abdomen: Normal bowel sounds, Soft Extremities: Normal pulses - Results Results: Laboratory Results WBC 12.1 x10^3/uL (4.8-10.8) H 08/03/21 05:53 RBC 4.03 10^6/uL (4.70-6.10) L 08/03/21 05:53 Hgb 13.5 g/dL (14.0-18.0) L 08/03/21 05:53 Hct 38.8 % (42.0-52.0) L 08/03/21 05:53 MCV 96.3 fL (80.0-94.0) H 08/03/21 05:53 MCH 33.5 pg (27.0-31.0) H 08/03/21 05:53 MCHC 34.8 g/dL (32.0-36.0) 08/03/21 05:53 RDW 12.9 % (12.0-15.0) 08/03/21 05:53 Plt Count 175 10^3/uL (130-450) 08/03/21 05:53 MPV 8.3 fL (7.4-11.4) 08/03/21 05:53 Neut # (Auto) 10.6 10^3/uL (1.5-6.6) H 08/03/21 05:53 Lymph # (Auto) 0.8 10^3/uL (1.5-3.5) L 08/03/21 05:53 [place] # (Auto) 0.7 10^3/uL (0.0-1.0) 08/03/21 05:53 Eos # (Auto) 0.0 10^3/uL (0.0-0.7) 08/03/21 05:53 Baso # (Auto) 0.0 10^3/uL (0.0-0.1) 08/03/21 05:53 Absolute Nucleated RBC 0.00 x10^3/uL 08/03/21 05:53 Nucleated RBC % 0.0 /100WBC 08/03/21 05:53 Sodium 129 mmol/L (135-145) L 08/03/21 05:53 Potassium 3.7 mmol/L (3.5-5.0) 08/03/21 05:53 Chloride 98 mmol/L (101-111) L 08/03/21 05:53 Carbon Dioxide 18 mmol/L (21-32) L 08/03/21 05:53 Anion Gap 13.0 (6-13) 08/03/21 05:53 BUN 15 mg/dL (6-20) 08/03/21 05:53 Creatinine 1.0 mg/dL (0.6-1.2) 08/03/21 05:53 Estimated GFR (MDRD) 71 (>89) L 08/03/21 05:53 Glucose 163 mg/dL (70-100) H 08/03/21 05:53 Lactic Acid 1.8 mmol/L (0.5-2.2) 08/02/21 18:30 Calcium 8.7 mg/dL (8.5-10.3) 08/03/21 05:53 Total Bilirubin 0.9 mg/dL (0.2-1.0) 08/02/21 18:30 AST 46 IU/L (10-42) H 08/02/21 18:30 ALT 48 IU/L (10-60) 08/02/21 18:30 Alkaline Phosphatase 76 IU/L (42-121) 08/02/21 18:30 Total Protein 7.1 g/dL (6.7-8.2) 08/02/21 18:30 Albumin 4.4 g/dL (3.2-5.5) 08/02/21 18:30 Globulin 2.7 g/dL (2.1-4.2) 08/02/21 18:30 Albumin/Globulin Ratio 1.6 (1.0-2.2) 08/02/21 18:30 Lipase 25 U/L (22-51) 08/02/21 18:30 TSH 2.91 uIU/mL (0.34-5.60) 08/02/21 18:30 Urine Color YELLOW 08/02/21 19:49 Urine Clarity CLEAR (CLEAR) 08/02/21 19:49 Urine pH 6.5 PH (5.0-7.5) 08/02/21 19:49 Ur Specific [place] 1.020 (1.002-1.030) 08/02/21 19:49 Urine Protein NEGATIVE mg/dL (NEGATIVE) 08/02/21 19:49 Urine Glucose (UA) NEGATIVE mg/dL (NEGATIVE) 08/02/21 19:49 Urine Ketones 15 mg/dL (NEGATIVE) H 08/02/21 19:49 Urine Occult Blood TRACE-INTA (NEGATIVE) 08/02/21 19:49 Urine Nitrite NEGATIVE (NEGATIVE) 08/02/21 19:49 Urine Bilirubin NEGATIVE (NEGATIVE) 08/02/21 19:49 Urine Urobilinogen 0.2 (NORMAL) E.U./dL (NORMAL) 08/02/21 19:49 Ur Leukocyte Esterase NEGATIVE (NEGATIVE) 08/02/21 19:49 Ur Microscopic Review NOT INDICATED 08/02/21 19:49 Urine Culture Comments NOT INDICATED 08/02/21 19:49 Nasal Adenovirus (PCR) NOT DETECTED 08/02/21 19:40 Nasal B. parapertussis DNA (PCR) NOT DETECTED 08/02/21 19:40 Nasal Coronavir 229E PCR NOT DETECTED 08/02/21 19:40 Nasal Coronavir HKU1 PCR NOT DETECTED 08/02/21 19:40 Nasal Coronavir NL63 PCR NOT DETECTED 08/02/21 19:40 Nasal Coronavir OC43 PCR NOT DETECTED 08/02/21 19:40 Nasal Enterovir/Rhinovir PCR NOT DETECTED 08/02/21 19:40 Nasal Influenza B PCR NOT DETECTED 08/02/21 19:40 Nasal Influenza A PCR NOT DETECTED 08/02/21 19:40 Nasal Parainfluen 1 PCR NOT DETECTED 08/02/21 19:40 Nasal Parainfluen 2 PCR NOT DETECTED 08/02/21 19:40 Nasal Parainfluen 3 PCR NOT DETECTED 08/02/21 19:40 Nasal Parainfluen 4 PCR NOT DETECTED 08/02/21 19:40 Nasal RSV (PCR) NOT DETECTED 08/02/21 19:40 Nasal B.pertussis DNA PCR NOT DETECTED 08/02/21 19:40 Nasal C.pneumoniae (PCR) NOT DETECTED 08/02/21 19:40 Javier Human Metapneumo PCR NOT DETECTED 08/02/21 19:40 Nasal M.pneumoniae (PCR) NOT DETECTED 08/02/21 19:40 Nasal SARS-CoV-2 (PCR) NOT DETECTED 08/02/21 19:40 Salicylates < 6.0 mg/dL 08/02/21 18:30 Urine Opiates Screen NEGATIVE (NEGATIVE) 08/02/21 19:49 Ur Oxycodone Screen NEGATIVE (NEGATIVE) 08/02/21 19:49 Urine Methadone Screen NEGATIVE (NEGATIVE) 08/02/21 19:49 Ur Propoxyphene Screen NEGATIVE (NEGATIVE) 08/02/21 19:49 Acetaminophen < 10 ug/mL (10-30) L 08/02/21 18:30 Ur Barbiturates Screen NEGATIVE (NEGATIVE) 08/02/21 19:49 Ur Tricyclics Screen NEGATIVE (NEGATIVE) 08/02/21 19:49 Ur Phencyclidine Scrn NEGATIVE (NEGATIVE) 08/02/21 19:49 Ur Amphetamine Screen NEGATIVE (NEGATIVE) 08/02/21 19:49 U Methamphetamines Scrn NEGATIVE (NEGATIVE) 08/02/21 19:49 U Benzodiazepines Scrn POSITIVE (NEGATIVE) H 08/02/21 19:49 Urine Cocaine Screen NEGATIVE (NEGATIVE) 08/02/21 19:49 U Cannabinoids Screen NEGATIVE (NEGATIVE) 08/02/21 19:49 Ethyl Alcohol < 5.0 mg/dL 08/02/21 18:30 - Procedures Procedures: Procedures BLADDER NECK DILATION (12/28/13) BLADDER SPHINCTEROTOMY (12/28/13) DX ULTRASOUND NEC (05/04/13) PERCUTAN NEEDLE BIOPSY OF PROSTATE (05/04/13) TRANSURETHRAL PROSTATECTOMY (TULIP) (05/04/13) ABX Reporting Has patient been on IV antibiotics over the past 48 hours?: No Current Medications - Current Medications Current Medications: Active Medications Acetaminophen (Acetaminophen 325 Mg Tablet) 650 mg PO Q4HR PRN PRN Reason: Pain 1 to 4 Sodium Chloride (Normal Saline 0.9%) 1,000 mls @ 83.3 mls/hr IV .Q12H1M [facility] Stop: 08/04/21 13:38 Lorazepam (Lorazepam 2 Mg/Ml Vial) 1 mg IVP ONCE [facility] Stop: 08/03/21 23:00 Last Admin: 08/03/21 11:35 Dose: 1 mg Documented by: Ondansetron HCl (Ondansetron 4 Mg/2 Ml Vial) 4 mg IVP Q6HR PRN PRN Reason: Nausea / Vomiting Sodium Chloride (Sodium Chloride Flush 0.9% 10 Ml Syringe) 10 ml IVP PRN PRN PRN Reason: NEEDED PER PROVIDER ORDERS Sodium Chloride (Sodium Chloride Flush 0.9% 10 Ml Syringe) 10 ml IVP 0100,0900,1700 [facility] Last Admin: 08/03/21 11:35 Dose: 10 ml Documented by: Alprazolam [Alprazolam Odt] 0.25 mg PO 02/06/13 Aspirin Chewable [[place] Aspirin] 81 mg PO DAILY 04/28/13 Cholecalciferol [Vitamin D3] 400 unit PO DAILY 04/28/13 Metoprolol Succinate 25 mg PO DAILY 04/28/13 Atorvastatin [Lipitor] 20 mg PO DAILY 12/28/13 Bicalutamide [Casodex] 50 mg PO DAILY 12/28/13 Cranberry Fruit Extract/Vit C [Azo Cranberry Softgel] 1 each PO 12/28/13 Leuprolide [Lupron] 7.5 mg IM 12/28/13 LORazepam [Ativan] 0.5 mg PO TID PRN 08/03/21 Zolpidem [Ambien] 5 - 7.5 mg PO QPM PRN 08/03/21
--- NOTE | 2021-08-03 16:31 | PHARMACY PROGRESS NOTE ---
- Best Possible Medication History Admit Date and Time: 08/02/212047 Processed by: Pharmacy Medication History completed: Yes Patient Interview: Pt unable to participate Secondary Source(s): Other family member, Physician records, Pharmacy records As the person ultimately responsible for medication therapy, providers are able to order a medication from an existing home medication list in [facility] via the "Reconcile Routine" prior to Confirmation of that medication by client application support specialist. Such practice is discouraged except when the physician, in their clinical judgment, deems that a medical need exists for a medication without regard to previous use.
[2021-08-03] MEDS: PRENATAL VITAMIN TABLET PO SCH (19:46)
[2021-08-03] MEDS: THIAMINE 100 MG TABLET PO SCH (19:46)
[2021-08-03] MEDS: WINE 187 ML BOTTLE PO SCH ×2 (19:47)
[2021-08-03] MEDS: ACETAMINOPHEN 325 MG TABLET PO PRN (19:47)
[2021-08-04] MEDS: SODIUM CHLORIDE FLUSH 0.9% 10 ML SYRINGE IVP SCH ×3 (00:12→17:48)
[2021-08-04] MEDS: SODIUM CHLORIDE 0.9% 1,000 ML IV SCH (00:12)
[2021-08-04 07:43] LABS: BASOPHILS # (AUTO) 0.1 10^3/uL (0.0-0.1); BASOPHILS % (AUTO) 0.4 %; EOSINOPHILS % (AUTO) 0.3 %; HCT - HEMATOCRIT 43.2 % (42.0-52.0); HGB - HEMOGLOBIN 15.1 g/dL (14.0-18.0); LYMPHOCYTES # (AUTO) 1.5 10^3/uL (1.5-3.5); LYMPHOCYTES % (AUTO) 13.4 %; MEAN CORPUSCULAR HEMOGLOBIN 33.6 pg (27.0-31.0); MEAN CORPUSCULAR VOLUME 96.2 fL (80.0-94.0); MEAN PLATELET VOLUME 8.2 fL (7.4-11.4); MONOCYTES # (AUTO) 0.8 10^3/uL (0.0-1.0); MONOCYTES % (AUTO) 6.7 %; NEUTROPHILS # (AUTO) 8.8 10^3/uL (1.5-6.6); NEUTROPHILS % (AUTO) 78.8 %; PLT - PLATELET COUNT 186 10^3/uL (130-450); RED BLOOD COUNT 4.49 10^6/uL (4.70-6.10); RED CELL DISTRIBUTION WIDTH 13.1 % (12.0-15.0); WHITE BLOOD COUNT 11.2 x10^3/uL (4.8-10.8)
[2021-08-04 07:52] LABS: POTASSIUM 3.7 mmol/L (3.5-5.0)
[2021-08-04] MEDS ORDERED: METOPROLOL SUCCINATE 25 MG TABLET PO SCH ×2 (09:00)
[2021-08-04] MEDS: THIAMINE 100 MG TABLET PO SCH (12:30)
[2021-08-04] MEDS: PRENATAL VITAMIN TABLET PO SCH (12:30)
--- NOTE | 2021-08-04 13:07 | PROVIDER PROGRESS NOTE ---
Assessment/Plan - Problem List (1) Altered mental status Qualifiers: Altered mental status type: delirium Qualified Code(s): R41.0 - Disorientation, unspecified Assessment/Plan: 08/04 improved, pt is alert and oriented 2 but still present on and off some confusion. pt had Ativan for his MRI study on yesterday. we will continue neuro check, hold home Ativan and Ambien now. 08/[address] pt's MRI [address] of head are unremarkable for acute finding. pt also does not present focal Neuro deficit. pt was still confused at the insurance compliance analyst when I assessed pt but nurse report pt became more clear and more oriented after that. pt need ativan for his MRI of brain, now pt is sleeping. Updated these information to pt's umesh Bryan, and answered his questions. continue neuro check, hold his home Ambien, Ativan, continue IVF and diet. suspected Medication-caused (2)prostate cancer pt has hx of prostate cancer. ENVIRONMENTAL DESIGNER report pt urinated by himself at the morning. pt has no pain. pt pt may continue followup with his oncologist as out-pt (3)HTN stable, will resume his home meds after confirmed (4)HLD will resume his home meds (5)bradycardia pt present HR 42-46 in tele after pt had his home meds Metoprolol. Patient is asymptomatic, he denies dizziness or lightheaded or chest pain, he had normal BP. We will hold patient metoprolol, Continue nuclear monitoring technician, order EKG (6)alcohol abuse Patient had history of alcohol abuse, he drink alcohol every night. He Ask for Wine alcohol on last night. His son Bryan, AT the bedside, he hope to have alcohol for his father, his father is 88 yrs old. order 50ml wine for pt. pt has no alco hol Withdrawal symptoms. add and vitamin B1 for pt. (8)profound weakness Ppt present profound weakness. PT and OT evaluated and treated for patient, and Recommended d/c patient to SNF. tin worker was consulted for disposition - Current Meds Current Meds: Current Medications Generic Name Dose Route Start Last Admin Trade Name Freq PRN Reason Stop Dose Admin Acetaminophen 650 mg 08/02/21 20:48 08/03/21 19:47 Acetaminophen 325 Mg Tablet PO 650 mg Q4HR PRN Administration Pain 1 to 4 Sodium Chloride 1,000 mls @ 83.3 mls/hr 08/03/21 13:38 08/04/21 00:12 Normal Saline 0.9% IV 08/04/21 13:38 Not Given .Q12H1M LUIS Multivit/Folic Acid/Iron 1 tab 08/03/21 19:00 08/04/21 12:30 Vitamin Tablet PO 1 tab DAILYWM LUIS Administration Sodium Chloride 10 ml 08/03/21 01:00 08/04/21 00:12 Sodium Chloride Flush 0.9% 10 Ml Syringe IVP Not Given 0100,0900,1700 LUIS Thiamine HCl 100 mg 08/03/21 18:50 08/04/21 12:30 Thiamine 100 Mg Tablet PO 100 mg DAILY LUIS Administration Wine 187 ml 08/03/21 18:00 08/03/21 19:47 Wine 187 Ml Bottle PO Not Given 1800 LUIS - Lab Result Fish Bone Diagrams: 08/04/21 07:38 08/04/21 07:38 - Additional Planning My Orders: My Active Orders 08/03/21 13:38 Sodium Chloride 0.9% [Normal Saline 0.9%] 1,000 ml IV 83.3 mls/hr 08/03/21 13:54 Neuro Check [RC] QSHIFT 08/03/21 18:00 Wine 187 ml PO 1800 08/03/21 18:30 Code Status [OTHERS] Routine 08/03/21 18:50 Thiamine [Vitamin B-1] 100 mg PO DAILY 08/03/21 19:00 Vitamin [Trinatal Rx 1] 1 tab PO DAILYWM 08/04/21 Evaluate and Treat OT [OT] Routine Evaluate and Treat PT [PT] Routine 08/04/21 12:46 Orthostatic [Vital Signs - Orthostatic] [RC] DAILY 08/04/21 21:00 Atorvastatin [Lipitor] 20 mg PO QPM Subjective - Subjective Patient Reports: Resting Comfortably Objective Vital Signs: Vital Signs - 24 hr 08/03/21 08/03/21 08/04/21 16:12 21:00 00:17 Temperature 36.4 C L 36.7 C 36.6 C Heart Rate [ Activity] Heart Rate [ 54 L 101 H 94 Brachial] Heart Rate [ Supine] Respiratory 16 20 20 Rate Blood Pressure 134/79 H 153/80 H 162/88 H [Right Brachial artery] Blood Pressure [Supine] O2 Saturation 97 94 95 11/05/21 11/05/21 11/05/21 05:00 09:00 11:15 Temperature 36.4 C L 36.4 C L Heart Rate [ 47 L Activity] Heart Rate [ 86 82 Brachial] Heart Rate [ 42 L Supine] Respiratory 16 20 Rate Blood Pressure 159/87 H 154/82 H [Right Brachial artery] Blood Pressure 112/62 [Supine] O2 Saturation 97 95 08/04/21 12:36 Temperature Heart Rate [ 47 L Activity] Heart Rate [ Brachial] Heart Rate [ 42 L Supine] Respiratory Rate Blood Pressure [Right Brachial artery] Blood Pressure 112/62 [Supine] O2 Saturation Oxygen O2 Source Room air I&O (Last 24 Hrs): Intake and Output Totals x24h 08/02/21 08/03/21 08/04/21 23:59 23:59 23:59 Intake Total 1997 200 Output Total 0 375 Balance 0 1623 200 General: Alert, Cooperative, No acute distress HEENT: Atraumatic Neck: Supple Lymphatic: no adenopathy Neuro: Alert, Non Focal Cardiovascular: Regular rate, Normal S1, Normal S2 Respiratory: Chest non-tender, No respiratory distress Abdomen: Normal bowel sounds, Soft Extremities: Normal pulses - Results Results: Laboratory Results WBC 11.2 x10^3/uL (4.8-10.8) H 08/04/21 07:38 RBC 4.49 10^6/uL (4.70-6.10) L 08/04/21 07:38 Hgb 15.1 g/dL (14.0-18.0) 08/04/21 07:38 Hct 43.2 % (42.0-52.0) 08/04/21 07:38 MCV 96.2 fL (80.0-94.0) H 08/04/21 07:38 MCH 33.6 pg (27.0-31.0) H 08/04/21 07:38 MCHC 35.0 g/dL (32.0-36.0) 08/04/21 07:38 RDW 13.1 % (12.0-15.0) 08/04/21 07:38 Plt Count 186 10^3/uL (130-450) 08/04/21 07:38 MPV 8.2 fL (7.4-11.4) 08/04/21 07:38 Neut # (Auto) 8.8 10^3/uL (1.5-6.6) H 08/04/21 07:38 Lymph # (Auto) 1.5 10^3/uL (1.5-3.5) 08/04/21 07:38 [place] # (Auto) 0.8 10^3/uL (0.0-1.0) 08/04/21 07:38 Eos # (Auto) 0.0 10^3/uL (0.0-0.7) 08/04/21 07:38 Baso # (Auto) 0.1 10^3/uL (0.0-0.1) 08/04/21 07:38 Absolute Nucleated RBC 0.00 x10^3/uL 08/04/21 07:38 Nucleated RBC % 0.0 /100WBC 08/04/21 07:38 Sodium 134 mmol/L (135-145) L 08/04/21 07:38 Potassium 3.7 mmol/L (3.5-5.0) 08/04/21 07:38 Chloride 101 mmol/L (101-111) 08/04/21 07:38 Carbon Dioxide 21 mmol/L (21-32) 08/04/21 07:38 Anion Gap 12.0 (6-13) 08/04/21 07:38 BUN 15 mg/dL (6-20) 08/04/21 07:38 Creatinine 1.0 mg/dL (0.6-1.2) 08/04/21 07:38 Estimated GFR (MDRD) 71 (>89) L 08/04/21 07:38 Glucose 142 mg/dL (70-100) H 08/04/21 07:38 Lactic Acid 1.8 mmol/L (0.5-2.2) 08/02/21 18:30 Calcium 9.0 mg/dL (8.5-10.3) 08/04/21 07:38 Total Bilirubin 0.9 mg/dL (0.2-1.0) 08/02/21 18:30 AST 46 IU/L (10-42) H 08/02/21 18:30 ALT 48 IU/L (10-60) 08/02/21 18:30 Alkaline Phosphatase 76 IU/L (42-121) 08/02/21 18:30 Total Protein 7.1 g/dL (6.7-8.2) 08/02/21 18:30 Albumin 4.4 g/dL (3.2-5.5) 08/02/21 18:30 Globulin 2.7 g/dL (2.1-4.2) 08/02/21 18:30 Albumin/Globulin Ratio 1.6 (1.0-2.2) 08/02/21 18:30 Lipase 25 U/L (22-51) 08/02/21 18:30 TSH 2.91 uIU/mL (0.34-5.60) 08/02/21 18:30 Urine Color YELLOW 08/02/21 19:49 Urine Clarity CLEAR (CLEAR) 08/02/21 19:49 Urine pH 6.5 PH (5.0-7.5) 08/02/21 19:49 Ur Specific [place] 1.020 (1.002-1.030) 08/02/21 19:49 Urine Protein NEGATIVE mg/dL (NEGATIVE) 08/02/21 19:49 Urine Glucose (UA) NEGATIVE mg/dL (NEGATIVE) 08/02/21 19:49 Urine Ketones 15 mg/dL (NEGATIVE) H 08/02/21 19:49 Urine Occult Blood TRACE-INTA (NEGATIVE) 08/02/21 19:49 Urine Nitrite NEGATIVE (NEGATIVE) 08/02/21 19:49 Urine Bilirubin NEGATIVE (NEGATIVE) 08/02/21 19:49 Urine Urobilinogen 0.2 (NORMAL) E.U./dL (NORMAL) 08/02/21 19:49 Ur Leukocyte Esterase NEGATIVE (NEGATIVE) 08/02/21 19:49 Ur Microscopic Review NOT INDICATED 08/02/21 19:49 Urine Culture Comments NOT INDICATED 08/02/21 19:49 Nasal Adenovirus (PCR) NOT DETECTED 08/02/21 19:40 Nasal B. parapertussis DNA (PCR) NOT DETECTED 08/02/21 19:40 Nasal Coronavir 229E PCR NOT DETECTED 08/02/21 19:40 Nasal Coronavir HKU1 PCR NOT DETECTED 08/02/21 19:40 Nasal Coronavir NL63 PCR NOT DETECTED 08/02/21 19:40 Nasal Coronavir OC43 PCR NOT DETECTED 08/02/21 19:40 Nasal Enterovir/Rhinovir PCR NOT DETECTED 08/02/21 19:40 Nasal Influenza B PCR NOT DETECTED 08/02/21 19:40 Nasal Influenza A PCR NOT DETECTED 08/02/21 19:40 Nasal Parainfluen 1 PCR NOT DETECTED 08/02/21 19:40 Nasal Parainfluen 2 PCR NOT DETECTED 08/02/21 19:40 Nasal Parainfluen 3 PCR NOT DETECTED 08/02/21 19:40 Nasal Parainfluen 4 PCR NOT DETECTED 08/02/21 19:40 Nasal RSV (PCR) NOT DETECTED 08/02/21 19:40 Nasal B.pertussis DNA PCR NOT DETECTED 08/02/21 19:40 Nasal C.pneumoniae (PCR) NOT DETECTED 08/02/21 19:40 Javier Human Metapneumo PCR NOT DETECTED 08/02/21 19:40 Nasal M.pneumoniae (PCR) NOT DETECTED 08/02/21 19:40 Nasal SARS-CoV-2 (PCR) NOT DETECTED 08/02/21 19:40 Salicylates < 6.0 mg/dL 08/02/21 18:30 Urine Opiates Screen NEGATIVE (NEGATIVE) 08/02/21 19:49 Ur Oxycodone Screen NEGATIVE (NEGATIVE) 08/02/21 19:49 Urine Methadone Screen NEGATIVE (NEGATIVE) 08/02/21 19:49 Ur Propoxyphene Screen NEGATIVE (NEGATIVE) 08/02/21 19:49 Acetaminophen < 10 ug/mL (10-30) L 08/02/21 18:30 Ur Barbiturates Screen NEGATIVE (NEGATIVE) 08/02/21 19:49 Ur Tricyclics Screen NEGATIVE (NEGATIVE) 08/02/21 19:49 Ur Phencyclidine Scrn NEGATIVE (NEGATIVE) 08/02/21 19:49 Ur Amphetamine Screen NEGATIVE (NEGATIVE) 08/02/21 19:49 U Methamphetamines Scrn NEGATIVE (NEGATIVE) 08/02/21 19:49 U Benzodiazepines Scrn POSITIVE (NEGATIVE) H 08/02/21 19:49 Urine Cocaine Screen NEGATIVE (NEGATIVE) 08/02/21 19:49 U Cannabinoids Screen NEGATIVE (NEGATIVE) 08/02/21 19:49 Ethyl Alcohol < 5.0 mg/dL 08/02/21 18:30 - Procedures Procedures: Procedures BLADDER NECK DILATION (12/28/13) BLADDER SPHINCTEROTOMY (12/28/13) DX ULTRASOUND NEC (05/04/13) PERCUTAN NEEDLE BIOPSY OF PROSTATE (05/04/13) TRANSURETHRAL PROSTATECTOMY ([place]IP) (05/04/13) ABX Reporting Has patient been on IV antibiotics over the past 48 hours?: No Current Medications - Current Medications Current Medications: Active Medications Acetaminophen (Acetaminophen 325 Mg Tablet) 650 mg PO Q4HR PRN PRN Reason: Pain 1 to 4 Last Admin: 08/03/21 19:47 Dose: 650 mg Documented by: Atorvastatin Calcium (Atorvastatin 10 Mg Tablet) 20 mg PO QPM [facility] Sodium Chloride (Normal Saline 0.9%) 1,000 mls @ 83.3 mls/hr IV .Q12H1M [facility] Stop: 08/04/21 13:38 Last Admin: 08/04/21 00:12 Dose: Not Given Documented by: Ondansetron HCl (Ondansetron 4 Mg/2 Ml Vial) 4 mg IVP Q6HR PRN PRN Reason: Nausea / Vomiting Multivit/Folic Acid/Iron ( Vitamin Tablet) 1 tab PO DAILYWM [facility] Last Admin: 08/04/21 12:30 Dose: 1 tab Documented by: Sodium Chloride (Sodium Chloride Flush 0.9% 10 Ml Syringe) 10 ml IVP PRN PRN PRN Reason: NEEDED PER PROVIDER ORDERS Sodium Chloride (Sodium Chloride Flush 0.9% 10 Ml Syringe) 10 ml IVP 0100,0900,1700 [facility] Last Admin: 08/04/21 00:12 Dose: Not Given Documented by: Thiamine HCl (Thiamine 100 Mg Tablet) 100 mg PO DAILY [facility] Last Admin: 08/04/21 12:30 Dose: 100 mg Documented by: Wine (Wine 187 Ml Bottle) 187 ml PO 1800 [facility] Last Admin: 08/03/21 19:47 Dose: Not Given Documented by: Metoprolol Succinate 25 mg PO DAILY 04/28/13 Atorvastatin [Lipitor] 20 mg PO QPM 12/28/13 Bicalutamide [Casodex] 50 mg PO DAILY 12/28/13 LORazepam [Ativan] 0.5 mg PO TID PRN 08/03/21 Leuprolide [Lupron] 45 mg IM Q180D 08/03/21 Zolpidem [Ambien] 5 - 7.5 mg PO QPM PRN 08/03/21
[2021-08-04] MEDS: WINE 187 ML BOTTLE PO SCH (17:48)
[2021-08-04] MEDS: ATORVASTATIN 10 MG TABLET PO SCH (21:16)
[2021-08-05] MEDS: SODIUM CHLORIDE FLUSH 0.9% 10 ML SYRINGE IVP SCH ×5 (06:11→23:45)
[2021-08-05 07:37] LABS: BASOPHILS # (AUTO) 0.1 10^3/uL (0.0-0.1); BASOPHILS % (AUTO) 0.5 %; EOSINOPHILS # (AUTO) 0.2 10^3/uL (0.0-0.7); HCT - HEMATOCRIT 42.4 % (42.0-52.0); HGB - HEMOGLOBIN 14.3 g/dL (14.0-18.0); LYMPHOCYTES # (AUTO) 1.6 10^3/uL (1.5-3.5); MEAN CORPUSCULAR HEMOGLOBIN 33.1 pg (27.0-31.0); MEAN CORPUSCULAR HGB CONC 33.7 g/dL (32.0-36.0); MEAN CORPUSCULAR VOLUME 98.1 fL (80.0-94.0); MEAN PLATELET VOLUME 8.4 fL (7.4-11.4); MONOCYTES # (AUTO) 0.7 10^3/uL (0.0-1.0); MONOCYTES % (AUTO) 7.7 %; NEUTROPHILS % (AUTO) 72.3 %; PLT - PLATELET COUNT 177 10^3/uL (130-450); RED BLOOD COUNT 4.32 10^6/uL (4.70-6.10); RED CELL DISTRIBUTION WIDTH 13.1 % (12.0-15.0); WHITE BLOOD COUNT 9.6 x10^3/uL (4.8-10.8)
[2021-08-05 07:51] LABS: CALCIUM 9.1 mg/dL (8.5-10.3); CREATININE 1.1 mg/dL (0.6-1.2); POTASSIUM 3.6 mmol/L (3.5-5.0)
[2021-08-05] MEDS: THIAMINE 100 MG TABLET PO SCH (08:45)
[2021-08-05] MEDS: PRENATAL VITAMIN TABLET PO SCH (08:45)
--- NOTE | 2021-08-05 14:12 | PROVIDER PROGRESS NOTE ---
Subjective - Prog Note Date Prog Note Date: 08/05/21 - Subjective Subjective: He feels improved. Still complains of mild right hip pain. Son is at bedside and states his father appears improved but still not close to his baseline whatsoever. He tells me his father has had a cognitive decline over the past 6 months or so. Current Medications - Current Medications Current Medications: Active Medications Acetaminophen (Acetaminophen 325 Mg Tablet) 650 mg PO Q4HR PRN PRN Reason: Pain 1 to 4 Last Admin: 08/03/21 19:47 Dose: 650 mg Documented by: Atorvastatin Calcium (Atorvastatin 10 Mg Tablet) 20 mg PO QPM [facility] Last Admin: 08/04/21 21:16 Dose: 20 mg Documented by: Ondansetron HCl (Ondansetron 4 Mg/2 Ml Vial) 4 mg IVP Q6HR PRN PRN Reason: Nausea / Vomiting Multivit/Folic Acid/Iron ( Vitamin Tablet) 1 tab PO DAILYWM [facility] Last Admin: 08/05/21 08:45 Dose: 1 tab Documented by: Sodium Chloride (Sodium Chloride Flush 0.9% 10 Ml Syringe) 10 ml IVP PRN PRN PRN Reason: NEEDED PER PROVIDER ORDERS Sodium Chloride (Sodium Chloride Flush 0.9% 10 Ml Syringe) 10 ml IVP 0100,0900,1700 [facility] Last Admin: 08/05/21 08:45 Dose: Not Given Documented by: Thiamine HCl (Thiamine 100 Mg Tablet) 100 mg PO DAILY [facility] Last Admin: 08/05/21 08:45 Dose: 100 mg Documented by: Wine (Wine 187 Ml Bottle) 187 ml PO 1800 [facility] Last Admin: 08/04/21 17:48 Dose: Not Given Documented by: Metoprolol Succinate 25 mg PO DAILY 04/28/13 Atorvastatin [Lipitor] 20 mg PO QPM 12/28/13 Bicalutamide [Casodex] 50 mg PO DAILY 12/28/13 LORazepam [Ativan] 0.5 mg PO TID PRN 08/03/21 Leuprolide [Lupron] 45 mg IM Q180D 08/03/21 Zolpidem [Ambien] 5 - 7.5 mg PO QPM PRN 08/03/21 Objective - Vital Signs/Intake & Output Reviewed Vital Signs: Yes Vital Signs: Vital Signs x48h Temp Pulse Resp BP Pulse Ox 08/05/21 13:00 36.5 C 88 16 124/46 L 96 08/05/21 08:08 36.3 C L 70 132/77 H 96 Intake & Output: Intake & Output 08/02/21 08/03/21 08/04/21 08/05/21 23:59 23:59 23:59 23:59 Intake Total 1998 545 716 Output Total 0 375 425 0 Balance 0 1623 120 716 - Objective General Appearance: positive: No acute distress, Alert Eyes Bilateral: positive: Normal inspection ENT: positive: ENT inspection nml Neck: positive: Nml inspection Respiratory: positive: No respiratory distress. negative: Wheezes, Rales Cardiovascular: positive: Regular rate & rhythm. negative: Tachycardia Abdomen: positive: Non-tender, No distention. negative: Tenderness Skin: positive: Warm, Dry, Other (Small area of ecchymosis over the lateral aspect of the right hip and the right knee.) Extremities: positive: Full ROM, No pedal edema Neurologic/Psychiatric: positive: Motor nml, Sensation nml, Disoriented to time. negative: Disoriented to person, Disoriented to place, Slurred/abnml speech - Lab Results Fish Bones: 08/05/21 07:20 08/05/21 07:20 Other Labs: Lab Results x24hrs 08/05/21 08/05/21 Range/Units 07:20 07:20 WBC 9.6 (4.8-10.8) x10^3/uL RBC 4.32 L (4.70-6.10) 10^6/uL Hgb 14.3 (14.0-18.0) g/dL Hct 42.4 (42.0-52.0) % MCV 98.1 H (80.0-94.0) fL MCH 33.1 H (27.0-31.0) pg MCHC 33.7 (32.0-36.0) g/dL RDW 13.1 (12.0-15.0) % Plt Count 177 (130-450) 10^3/uL MPV 8.4 (7.4-11.4) fL Neut # (Auto) 7.0 H (1.5-6.6) 10^3/uL Lymph # (Auto) 1.6 (1.5-3.5) 10^3/uL [place] # (Auto) 0.7 (0.0-1.0) 10^3/uL Eos # (Auto) 0.2 (0.0-0.7) 10^3/uL Baso # (Auto) 0.1 (0.0-0.1) 10^3/uL Absolute Nucleated RBC 0.00 x10^3/uL Nucleated RBC % 0.0 /100WBC Sodium 135 (135-145) mmol/L Potassium 3.6 (3.5-5.0) mmol/L Chloride 102 (101-111) mmol/L Carbon Dioxide 23 (21-32) mmol/L Anion Gap 10.0 (6-13) BUN 25 H (6-20) mg/dL Creatinine 1.1 (0.6-1.2) mg/dL Estimated GFR (MDRD) 63 L (>89) Glucose 120 H (70-100) mg/dL Calcium 9.1 (8.5-10.3) mg/dL Assessment/Plan - Problem List (1) Altered mental status Impression: This is improved but still not quite back to baseline. I suspect this may be related to inappropriate use of his prescribed Ambien and lorazepam. His son tells me does have some cognitive impairment at baseline and can be forgetful at times. I suspect the patient may have inadvertently taken an extra dose of Ambien or lorazepam and he also admits to drinking multiple glasses of wine on a daily basis. Likely all of this together caused him to become delirious and altered. At this time, we will continue to hold his Ambien and lorazepam. He has not shown evidence of withdrawal. We will continue with 1 glass of wine in the evening. He was seen by PT and a SNF is recommended and at this point time he is pending placement. Qualifiers: Altered mental status type: delirium Qualified Code(s): R41.0 - Disorientation, unspecified (2) Insomnia Impression: This is likely related to his alcohol use. He has been using lorazepam and Ambien at home to help him sleep. Given his advanced age and concern for inappropriate use of these medications, I believe his primary care physician should consider limiting the use of these medications. We will continue to hold them for the time being and will not continue them when he goes to prison facility. (3) History of prostate cancer Impression: He can continue his home medications and follow-up with his oncologist on an outpatient basis. (4) Alcohol abuse Impression: He does admit to daily alcohol use and it appears he has been drinking multiple glasses of wine a day for many decades now. This may be contributing to his insomnia and cognitive impairment. We will continue thiamine. We will continue with 1 glass of wine a day. (5) Hypertension Impression: His blood pressure is well controlled. We will continue his home metoprolol.
[2021-08-05] MEDS: WINE 187 ML BOTTLE PO SCH (18:04)
[2021-08-05] MEDS: ACETAMINOPHEN 325 MG TABLET PO PRN (21:04)
[2021-08-05] MEDS: ATORVASTATIN 10 MG TABLET PO SCH (21:04)
[2021-08-06 06:09] LABS: BASOPHILS # (AUTO) 0.1 10^3/uL (0.0-0.1); BASOPHILS % (AUTO) 0.7 %; EOSINOPHILS # (AUTO) 0.2 10^3/uL (0.0-0.7); EOSINOPHILS % (AUTO) 2.8 %; HCT - HEMATOCRIT 41.1 % (42.0-52.0); HGB - HEMOGLOBIN 13.9 g/dL (14.0-18.0); LYMPHOCYTES # (AUTO) 1.9 10^3/uL (1.5-3.5); LYMPHOCYTES % (AUTO) 21.6 %; MEAN CORPUSCULAR HEMOGLOBIN 33.3 pg (27.0-31.0); MEAN CORPUSCULAR HGB CONC 33.8 g/dL (32.0-36.0); MEAN CORPUSCULAR VOLUME 98.6 fL (80.0-94.0); MEAN PLATELET VOLUME 8.3 fL (7.4-11.4); MONOCYTES # (AUTO) 0.7 10^3/uL (0.0-1.0); NEUTROPHILS # (AUTO) 5.7 10^3/uL (1.5-6.6); NEUTROPHILS % (AUTO) 66.5 %; PLT - PLATELET COUNT 181 10^3/uL (130-450); RED BLOOD COUNT 4.17 10^6/uL (4.70-6.10); RED CELL DISTRIBUTION WIDTH 13.3 % (12.0-15.0); WHITE BLOOD COUNT 8.6 x10^3/uL (4.8-10.8)
[2021-08-06 06:18] LABS: CALCIUM 8.8 mg/dL (8.5-10.3); CREATININE 1.2 mg/dL (0.6-1.2); POTASSIUM 3.7 mmol/L (3.5-5.0)
[2021-08-06] MEDS: PRENATAL VITAMIN TABLET PO SCH (08:49)
[2021-08-06] MEDS: THIAMINE 100 MG TABLET PO SCH (08:49)
[2021-08-06] MEDS: METOPROLOL SUCCINATE 25 MG TABLET PO SCH (08:51)
[2021-08-06] MEDS: SODIUM CHLORIDE FLUSH 0.9% 10 ML SYRINGE IVP SCH ×2 (10:01→16:58)
--- NOTE | 2021-08-06 11:25 | PROVIDER PROGRESS NOTE ---
Subjective - Prog Note Date Prog Note Date: 08/06/21 - Subjective Subjective: He reports feeling even better today. His only complaint is that he did not sleep well last night. He is requesting Benadryl. Current Medications - Current Medications Current Medications: Active Medications Acetaminophen (Acetaminophen 325 Mg Tablet) 650 mg PO Q4HR PRN PRN Reason: Pain 1 to 4 Last Admin: 08/05/21 21:04 Dose: 650 mg Documented by: Atorvastatin Calcium (Atorvastatin 10 Mg Tablet) 20 mg PO QPM [facility] Last Admin: 08/05/21 21:04 Dose: 20 mg Documented by: Metoprolol Succinate (Metoprolol Succinate 25 Mg Tablet) 25 mg PO DAILY [facility] Last Admin: 08/06/21 08:51 Dose: 25 mg Documented by: Ondansetron HCl (Ondansetron 4 Mg/2 Ml Vial) 4 mg IVP Q6HR PRN PRN Reason: Nausea / Vomiting Multivit/Folic Acid/Iron ( Vitamin Tablet) 1 tab PO DAILYWM [facility] Last Admin: 08/06/21 08:49 Dose: 1 tab Documented by: Sodium Chloride (Sodium Chloride Flush 0.9% 10 Ml Syringe) 10 ml IVP PRN PRN PRN Reason: NEEDED PER PROVIDER ORDERS Sodium Chloride (Sodium Chloride Flush 0.9% 10 Ml Syringe) 10 ml IVP 0100,0900,1700 [facility] Last Admin: 08/06/21 10:01 Dose: Not Given Documented by: Thiamine HCl (Thiamine 100 Mg Tablet) 100 mg PO DAILY [facility] Last Admin: 08/06/21 08:49 Dose: 100 mg Documented by: Metoprolol Succinate 25 mg PO DAILY 04/28/13 Atorvastatin [Lipitor] 20 mg PO QPM 12/28/13 Bicalutamide [Casodex] 50 mg PO DAILY 12/28/13 LORazepam [Ativan] 0.5 mg PO TID PRN 08/03/21 Leuprolide [Lupron] 45 mg IM Q180D 08/03/21 Zolpidem [Ambien] 5 - 7.5 mg PO QPM PRN 08/03/21 Objective - Vital Signs/Intake & Output Reviewed Vital Signs: Yes Vital Signs: Vital Signs x48h Temp Pulse Resp BP Pulse Ox 08/06/21 08:09 36.5 C 72 18 156/74 H 95 08/06/21 04:28 36.6 C 77 18 159/80 H 94 Intake & Output: Intake & Output 08/03/21 08/04/21 08/05/21 08/06/21 23:59 23:59 23:59 22:59 Intake Total 9511 620 3897 300 Output Total 375 425 0 175 Balance 0791 969 5220 125 - Objective General Appearance: positive: No acute distress, Alert Eyes Bilateral: positive: Normal inspection, Conjunctivae nml ENT: positive: ENT inspection nml Neck: positive: Nml inspection Respiratory: positive: No respiratory distress. negative: Wheezes, Rales Cardiovascular: positive: Regular rate & rhythm. negative: Irregularly irregular, Tachycardia Skin: positive: Warm, Dry Extremities: positive: No pedal edema Neurologic/Psychiatric: positive: Motor nml. negative: Disoriented to person, Disoriented to place, Disoriented to time, Facial droop, Slurred/abnml speech - Lab Results Fish Bones: 08/06/21 06:01 08/06/21 06:01 Other Labs: Lab Results x24hrs 08/06/21 08/06/21 Range/Units 06:01 06:01 WBC 8.6 (4.8-10.8) x10^3/uL RBC 4.17 L (4.70-6.10) 10^6/uL Hgb 13.9 L (14.0-18.0) g/dL Hct 41.1 L (42.0-52.0) % MCV 98.6 H (80.0-94.0) fL MCH 33.3 H (27.0-31.0) pg MCHC 33.8 (32.0-36.0) g/dL RDW 13.3 (12.0-15.0) % Plt Count 181 (130-450) 10^3/uL MPV 8.3 (7.4-11.4) fL Neut # (Auto) 5.7 (1.5-6.6) 10^3/uL Lymph # (Auto) 1.9 (1.5-3.5) 10^3/uL [place] # (Auto) 0.7 (0.0-1.0) 10^3/uL Eos # (Auto) 0.2 (0.0-0.7) 10^3/uL Baso # (Auto) 0.1 (0.0-0.1) 10^3/uL Absolute Nucleated RBC 0.00 x10^3/uL Nucleated RBC % 0.0 /100WBC Sodium 132 L (135-145) mmol/L Potassium 3.7 (3.5-5.0) mmol/L Chloride 101 (101-111) mmol/L Carbon Dioxide 20 L (21-32) mmol/L Anion Gap 11.0 (6-13) BUN 29 H (6-20) mg/dL Creatinine 1.2 (0.6-1.2) mg/dL Estimated GFR (MDRD) 57 L (>89) Glucose 113 H (70-100) mg/dL Calcium 8.8 (8.5-10.3) mg/dL Assessment/Plan - Problem List (1) Altered mental status Impression: This has now nearly completely resolved. He is still a little delayed at times with answering questions but is alert to self, location, date and his surroundings. He is also able to provide a history over the past few months. It appears he does have some cognitive impairment at baseline I suspect his presentation may be related to his alcohol use and possibly incorrectly taking his home medications of Ambien and lorazepam. Given he has shown improvement in no evidence of withdrawal, we will continue to hold his Ambien and lorazepam. At this point time, he is medically cleared and is just awaiting placement to a alf facility. Qualifiers: Altered mental status type: delirium Qualified Code(s): R41.0 - Disorie ntation, unspecified (2) Insomnia Impression: his is likely related to his alcohol use. He has been using lorazepam and Ambien at home to help him sleep. Given his advanced age and concern for inappropriate use of these medications, I believe his primary care physician should consider limiting the use of these medications. We will continue to hold them for the time being and will not continue them when he goes to alf facility. We will trial Benadryl this evening. (3) History of prostate cancer Impression: He can follow-up with his oncologist on an outpatient basis. (4) Alcohol abuse Impression: He does admit to daily alcohol use and it appears he has been drinking multiple glasses of wine a day for many decades now. This may be contributing to his insomnia and cognitive impairment. We will continue thiamine. We have been offering him a glass of wine with dinner but he has declined this. Given he has not shown evidence of withdrawal, we will discontinue the wine in the evening. (5) Hypertension Impression: His blood pressure elevated today with systolics in the 140s. If it remains elevated we will either increase metoprolol or add a second antihypertensive.
[2021-08-06] MEDS: ACETAMINOPHEN 325 MG TABLET PO PRN (20:33)
[2021-08-06] MEDS: diphenhydrAMINE 25 MG CAPSULE PO PRN (20:33)
[2021-08-06] MEDS: ATORVASTATIN 10 MG TABLET PO SCH (20:34)
[2021-08-07 05:36] LABS: BASOPHILS # (AUTO) 0.1 10^3/uL (0.0-0.1); BASOPHILS % (AUTO) 0.7 %; EOSINOPHILS # (AUTO) 0.2 10^3/uL (0.0-0.7); EOSINOPHILS % (AUTO) 2.6 %; HCT - HEMATOCRIT 37.3 % (42.0-52.0); HGB - HEMOGLOBIN 12.9 g/dL (14.0-18.0); LYMPHOCYTES # (AUTO) 1.8 10^3/uL (1.5-3.5); LYMPHOCYTES % (AUTO) 23.7 %; MEAN CORPUSCULAR HEMOGLOBIN 33.7 pg (27.0-31.0); MEAN CORPUSCULAR HGB CONC 34.6 g/dL (32.0-36.0); MEAN CORPUSCULAR VOLUME 97.4 fL (80.0-94.0); MEAN PLATELET VOLUME 8.4 fL (7.4-11.4); MONOCYTES # (AUTO) 0.6 10^3/uL (0.0-1.0); MONOCYTES % (AUTO) 7.9 %; NEUTROPHILS # (AUTO) 4.9 10^3/uL (1.5-6.6); NEUTROPHILS % (AUTO) 64.6 %; PLT - PLATELET COUNT 173 10^3/uL (130-450); RED BLOOD COUNT 3.83 10^6/uL (4.70-6.10); RED CELL DISTRIBUTION WIDTH 13.2 % (12.0-15.0); WHITE BLOOD COUNT 7.6 x10^3/uL (4.8-10.8)
[2021-08-07 05:44] LABS: CALCIUM 8.7 mg/dL (8.5-10.3); CREATININE 1.3 mg/dL (0.6-1.2); POTASSIUM 3.9 mmol/L (3.5-5.0)
[2021-08-07] MEDS: SODIUM CHLORIDE FLUSH 0.9% 10 ML SYRINGE IVP SCH ×3 (05:46→17:15)
[2021-08-07] MEDS: PRENATAL VITAMIN TABLET PO SCH (08:21)
[2021-08-07] MEDS: THIAMINE 100 MG TABLET PO SCH (09:28)
[2021-08-07] MEDS: METOPROLOL SUCCINATE 25 MG TABLET PO SCH (09:28)
--- NOTE | 2021-08-07 13:19 | PROVIDER PROGRESS NOTE ---
Subjective - Prog Note Date Prog Note Date: 08/07/21 - Subjective Subjective: Continues to do well. Has no complaints. He was happy with Benadryl last night and that helped him sleep a little bit. Current Medications - Current Medications Current Medications: Active Medications Acetaminophen (Acetaminophen 325 Mg Tablet) 650 mg PO Q4HR PRN PRN Reason: Pain 1 to 4 Last Admin: 08/07/21 16:11 Dose: 650 mg Documented by: Atorvastatin Calcium (Atorvastatin 10 Mg Tablet) 20 mg PO QPM [facility] Last Admin: 08/06/21 20:34 Dose: 20 mg Documented by: Diphenhydramine HCl (Diphenhydramine 25 Mg Capsule) 25 mg PO QPM PRN PRN Reason: Insomnia Last Admin: 08/06/21 20:33 Dose: 25 mg Documented by: Metoprolol Succinate (Metoprolol Succinate 25 Mg Tablet) 25 mg PO DAILY [facility] Last Admin: 08/07/21 09:28 Dose: 25 mg Documented by: Ondansetron HCl (Ondansetron 4 Mg/2 Ml Vial) 4 mg IVP Q6HR PRN PRN Reason: Nausea / Vomiting Multivit/Folic Acid/Iron ( Vitamin Tablet) 1 tab PO DAILYWM [facility] Last Admin: 08/07/21 08:21 Dose: 1 tab Documented by: Sodium Chloride (Sodium Chloride Flush 0.9% 10 Ml Syringe) 10 ml IVP PRN PRN PRN Reason: NEEDED PER PROVIDER ORDERS Sodium Chloride (Sodium Chloride Flush 0.9% 10 Ml Syringe) 10 ml IVP 0100,0900,1700 [facility] Last Admin: 08/07/21 09:29 Dose: Not Given Documented by: Thiamine HCl (Thiamine 100 Mg Tablet) 100 mg PO DAILY [facility] Last Admin: 08/07/21 09:28 Dose: 100 mg Documented by: Metoprolol Succinate 25 mg PO DAILY 04/28/13 Atorvastatin [Lipitor] 20 mg PO QPM 12/28/13 Bicalutamide [Casodex] 50 mg PO DAILY 12/28/13 LORazepam [Ativan] 0.5 mg PO TID PRN 08/03/21 Leuprolide [Lupron] 45 mg IM Q180D 08/03/21 Zolpidem [Ambien] 5 - 7.5 mg PO QPM PRN 08/03/21 Objective - Vital Signs/Intake & Output Reviewed Vital Signs: Yes Vital Signs: Vital Signs x48h Temp Pulse Resp BP Pulse Ox 08/07/21 08:05 36.3 C L 68 20 150/76 H 97 Intake & Output: Intake & Output 08/05/21 08/06/21 08/06/21 08/07/21 00:59 00:59 23:59 23:59 Intake Total 600 Output Total Balance 600 - Objective General Appearance: positive: No acute distress, Alert Eyes Bilateral: positive: Normal inspection, Conjunctivae nml ENT: positive: ENT inspection nml Neck: positive: Nml inspection Respiratory: positive: No respiratory distress. negative: Wheezes, Rales Cardiovascular: positive: Regular rate & rhythm. negative: Tachycardia Skin: positive: Warm, Dry Extremities: positive: No pedal edema Neurologic/Psychiatric: positive: Motor nml. negative: Disoriented to person, Disoriented to place, Slurred/abnml speech - Lab Results Fish Bones: 08/08/21 05:25 08/08/21 05:25 Other Labs: Lab Results x24hrs 08/07/21 08/07/21 Range/Units 05:18 05:18 WBC 7.6 (4.8-10.8) x10^3/uL RBC 3.83 L (4.70-6.10) 10^6/uL Hgb 12.9 L (14.0-18.0) g/dL Hct 37.3 L (42.0-52.0) % MCV 97.4 H (80.0-94.0) fL MCH 33.7 H (27.0-31.0) pg MCHC 34.6 (32.0-36.0) g/dL RDW 13.2 (12.0-15.0) % Plt Count 173 (130-450) 10^3/uL MPV 8.4 (7.4-11.4) fL Neut # (Auto) 4.9 (1.5-6.6) 10^3/uL Lymph # (Auto) 1.8 (1.5-3.5) 10^3/uL [place] # (Auto) 0.6 (0.0-1.0) 10^3/uL Eos # (Auto) 0.2 (0.0-0.7) 10^3/uL Baso # (Auto) 0.1 (0.0-0.1) 10^3/uL Absolute Nucleated RBC 0.00 x10^3/uL Nucleated RBC % 0.0 /100WBC Sodium 132 L (135-145) mmol/L Potassium 3.9 (3.5-5.0) mmol/L Chloride 100 L (101-111) mmol/L Carbon Dioxide 22 (21-32) mmol/L Anion Gap 10.0 (6-13) BUN 30 H (6-20) mg/dL Creatinine 1.3 H (0.6-1.2) mg/dL Estimated GFR (MDRD) 52 L (>89) Glucose 107 H (70-100) mg/dL Calcium 8.7 (8.5-10.3) mg/dL Assessment/Plan - Problem List (1) Altered mental status Impression: This is now resolved. He still has some physical deconditioning but he appears to be back to his baseline from a neurologic perspective. I suspect since presentation was due to misuse of his home medications which include Ambien and lorazepam. He also consumes quite a bit of alcohol and does have mild cognitive impairment at baseline. He is medically cleared for discharge. He no longer qualifies for SNF as his been doing quite well so the plan is to get him home. He does need caregivers so we are looking to discharge him to respite care tomorrow and then family will set up caregivers in the interim. Qualifiers: Qualified Code(s): R41.0 - Disorientation, unspecified (2) Insomnia Impression: This is likely related to his alcohol use. He was using lorazepam and Ambien at home. We discussed the importance of limiting the use of these medications and I informed him and his family that we should consider avoiding them in the future. We will continue with Benadryl as needed which he used last night. (3) History of prostate cancer Impression: He can follow-up with his oncologist on an outpatient basis. (4) Alcohol abuse Impression: He does admit to daily alcohol use and it appears he has been drinking multiple glasses of wine a day for many decades now. This may be contributing to his insomnia and cognitive impairment. We will continue thiamine. (5) Hypertension Impression: He has been persistently hypertensive with systolic in the 140s to 150s and so we will add amlodipine today. Continue metoprolol.
[2021-08-07] MEDS: ACETAMINOPHEN 325 MG TABLET PO PRN ×2 (16:11→20:42)
[2021-08-07] MEDS: amLODIPine 5 MG TABLET PO SCH (17:19)
[2021-08-07] MEDS: diphenhydrAMINE 25 MG CAPSULE PO PRN (20:43)
[2021-08-07] MEDS: ATORVASTATIN 10 MG TABLET PO SCH (20:43)
[2021-08-08] MEDS: ACETAMINOPHEN 325 MG TABLET PO PRN ×3 (00:57→16:30)
[2021-08-08] MEDS: SODIUM CHLORIDE FLUSH 0.9% 10 ML SYRINGE IVP SCH ×3 (00:58→16:33)
[2021-08-08 05:37] LABS: BASOPHILS # (AUTO) 0.1 10^3/uL (0.0-0.1); BASOPHILS % (AUTO) 0.8 %; EOSINOPHILS # (AUTO) 0.2 10^3/uL (0.0-0.7); EOSINOPHILS % (AUTO) 2.6 %; HCT - HEMATOCRIT 39.2 % (42.0-52.0); HGB - HEMOGLOBIN 13.4 g/dL (14.0-18.0); LYMPHOCYTES # (AUTO) 1.9 10^3/uL (1.5-3.5); LYMPHOCYTES % (AUTO) 24.3 %; MEAN CORPUSCULAR HEMOGLOBIN 33.3 pg (27.0-31.0); MEAN CORPUSCULAR HGB CONC 34.2 g/dL (32.0-36.0); MEAN CORPUSCULAR VOLUME 97.5 fL (80.0-94.0); MEAN PLATELET VOLUME 8.4 fL (7.4-11.4); MONOCYTES # (AUTO) 0.6 10^3/uL (0.0-1.0); MONOCYTES % (AUTO) 7.4 %; NEUTROPHILS # (AUTO) 5.2 10^3/uL (1.5-6.6); NEUTROPHILS % (AUTO) 64.5 %; PLT - PLATELET COUNT 184 10^3/uL (130-450); RED BLOOD COUNT 4.02 10^6/uL (4.70-6.10); RED CELL DISTRIBUTION WIDTH 13.2 % (12.0-15.0)
[2021-08-08 05:47] LABS: CALCIUM 8.7 mg/dL (8.5-10.3); CREATININE 1.3 mg/dL (0.6-1.2); POTASSIUM 3.8 mmol/L (3.5-5.0)
[2021-08-08] MEDS: PRENATAL VITAMIN TABLET PO SCH (08:35)
[2021-08-08] MEDS: METOPROLOL SUCCINATE 25 MG TABLET PO SCH (09:39)
[2021-08-08] MEDS: amLODIPine 5 MG TABLET PO SCH (09:40)
[2021-08-08] MEDS: THIAMINE 100 MG TABLET PO SCH (09:40)
--- NOTE | 2021-08-08 16:40 | PROVIDER PROGRESS NOTE ---
Subjective - Prog Note Date Prog Note Date: 08/08/21 Prog Note Time: 16:42 - Subjective Pt reports feeling: Improved Subjective: He is dismayed to be here. He would love to go home. He is anxious that his family is not going to take him home and is alarmed at the idea of going to an assisted living facility for respite. Were trying to reassure him that is a temporary measure until he can find / care for him. Unfortunately he forgets all of this and we need to repeat this about every 5 to 10 minutes. Current Medications - Current Medications Current Medications: Active Medications Acetaminophen (Acetaminophen 325 Mg Tablet) 650 mg PO Q4HR PRN PRN Reason: Pain 1 to 4 Last Admin: 08/08/21 16:30 Dose: 650 mg Documented by: Amlodipine Besylate (Amlodipine 5 Mg Tablet) 5 mg PO DAILY [facility] Last Admin: 08/08/21 09:40 Dose: 5 mg Documented by: Atorvastatin Calcium (Atorvastatin 10 Mg Tablet) 20 mg PO QPM [facility] Last Admin: 08/07/21 20:43 Dose: 20 mg Documented by: Diphenhydramine HCl (Diphenhydramine 25 Mg Capsule) 25 mg PO QPM PRN PRN Reason: Insomnia Last Admin: 08/07/21 20:43 Dose: 25 mg Documented by: Metoprolol Succinate (Metoprolol Succinate 25 Mg Tablet) 25 mg PO DAILY [facility] Last Admin: 08/08/21 09:39 Dose: 25 mg Documented by: Ondansetron HCl (Ondansetron 4 Mg/2 Ml Vial) 4 mg IVP Q6HR PRN PRN Reason: Nausea / Vomiting Multivit/Folic Acid/Iron ( Vitamin Tablet) 1 tab PO DAILYWM [facility] Last Admin: 08/08/21 08:35 Dose: 1 tab Documented by: Sodium Chloride (Sodium Chloride Flush 0.9% 10 Ml Syringe) 10 ml IVP PRN PRN PRN Reason: NEEDED PER PROVIDER ORDERS Sodium Chloride (Sodium Chloride Flush 0.9% 10 Ml Syringe) 10 ml IVP 0100,0900,1700 [facility] Last Admin: 08/08/21 16:33 Dose: Not Given Documented by: Thiamine HCl (Thiamine 100 Mg Tablet) 100 mg PO DAILY [facility] Last Admin: 08/08/21 09:40 Dose: 100 mg Documented by: Metoprolol Succinate 25 mg PO DAILY 07/30/13 Atorvastatin [Lipitor] 20 mg PO QPM 12/28/13 Bicalutamide [Casodex] 50 mg PO DAILY 12/28/13 LORazepam [Ativan] 0.5 mg PO TID PRN 08/03/21 Leuprolide [Lupron] 45 mg IM Q180D 08/03/21 Zolpidem [Ambien] 5 - 7.5 mg PO QPM PRN 08/03/21 Objective - Vital Signs/Intake & Output Reviewed Vital Signs: Yes Vital Signs: Vital Signs x48h Temp Pulse Resp BP Pulse Ox 08/08/21 16:00 36.3 C L 63 16 159/64 H 98 Intake & Output: Intake & Output 08/06/21 08/06/21 08/07/21 08/08/21 00:59 23:59 23:59 23:59 Intake Total 1510 920 Output Total Balance 1510 920 - Objective General Appearance: positive: No acute distress, Alert, Other (Elderly gentleman sitting up in his chair. Has bruising on the left side of his face, spontaneously reaches out to shake my hand. Tells me that he is "glad to meet me".) Eyes Bilateral: positive: PERRL, EOMI Neck: positive: No JVD. negative: Stiff neck Respiratory: positive: No respiratory distress. negative: Wheezes, Rales, Rhonchi Cardiovascular: positive: Regular rate & rhythm, Systolic murmur. negative: Gallop/S4, Friction rub Abdomen: positive: Non-tender, No organomegaly, Nml bowel sounds, No distention Skin: positive: Warm, Dry Extremities: positive: Full ROM, No pedal edema Neurologic/Psychiatric: positive: CN's nml (2-12), Motor nml, Disoriented to place, Disoriented to time - Lab Results Fish Bones: 08/08/21 05:25 08/08/21 05:25 Other Labs: Lab Results x24hrs 08/08/21 08/08/21 Range/Units 05:25 05:25 WBC 8.0 (4.8-10.8) x10^3/uL RBC 4.02 L (4.70-6.10) 10^6/uL Hgb 13.4 L (14.0-18.0) g/dL Hct 39.2 L (42.0-52.0) % MCV 97.5 H (80.0-94.0) fL MCH 33.3 H (27.0-31.0) pg MCHC 34.2 (32.0-36.0) g/dL RDW 13.2 (12.0-15.0) % Plt Count 184 (130-450) 10^3/uL MPV 8.4 (7.4-11.4) fL Neut # (Auto) 5.2 (1.5-6.6) 10^3/uL Lymph # (Auto) 1.9 (1.5-3.5) 10^3/uL [place] # (Auto) 0.6 (0.0-1.0) 10^3/uL Eos # (Auto) 0.2 (0.0-0.7) 10^3/uL Baso # (Auto) 0.1 (0.0-0.1) 10^3/uL Absolute Nucleated RBC 0.00 x10^3/uL Nucleated RBC % 0.0 /100WBC Sodium 132 L (135-145) mmol/L Potassium 3.8 (3.5-5.0) mmol/L Chloride 100 L (101-111) mmol/L Carbon Dioxide 23 (21-32) mmol/L Anion Gap 9.0 (6-13) BUN 27 H (6-20) mg/dL Creatinine 1.3 H (0.6-1.2) mg/dL Estimated GFR (MDRD) 52 L (>89) Glucose 110 H (70-100) mg/dL Calcium 8.7 (8.5-10.3) mg/dL ABX Reporting Has patient been on IV antibiotics over the past 48 hours?: No Assessment/Plan - Problem List (1) Altered mental status Impression: This is now resolved. He still has some physical deconditioning but he appears to be back to his baseline from a neurologic perspective. We think it was due to misuse of medication, tapering off of a long-term hypnotic, adding a tricyclic, and on top of all of this consuming alcohol on a regular basis. Family would like him transitioned to respite care. In the meantime they are aiming to have permanent care at home with 24/7 care. Until they can do that, they need to place him in a place where he will be safe. We attempted to do that today. However discharge planning, social work are still in the process of finding the appropriate facilities in helping the family. Qualifiers: Altered mental status type: delirium Qualified Code(s): R41.0 - Disorientation, unspecified (2) Insomnia Impression: We are avoiding lorazepam and Ambien. Using Benadryl as needed. (3) History of prostate cancer Impression: He can follow-up with his oncologist on an outpatient basis. (4) Alcohol abuse Impression: He does admit to daily alcohol use and it appears he has been drinking multiple glasses of wine a day for many decades now. This may be contributing to his insomnia and cognitive impairment. We will continue thiamine. So far there have not been any signs of alcohol withdrawal. (5) Hypertension Impression: Yesterday his blood pressure was as high as 187/67. Amlodipine was added yesterday. Today blood pressure has been 113 systolic and as high as 159 systolic. No medication change for today. We will continue his amlodipine and Toprol-XL. Qualifiers: Qualified Code(s): R41.0 - Disorientation, unspecified
[2021-08-08] MEDS: ATORVASTATIN 10 MG TABLET PO SCH (20:12)
[2021-08-08] MEDS: diphenhydrAMINE 25 MG CAPSULE PO PRN (20:12)
[2021-08-09] MEDS: SODIUM CHLORIDE FLUSH 0.9% 10 ML SYRINGE IVP SCH ×3 (00:29→07:49)
[2021-08-09 05:33] LABS: CALCIUM 8.8 mg/dL (8.5-10.3); CREATININE 1.2 mg/dL (0.6-1.2); POTASSIUM 4.1 mmol/L (3.5-5.0)
[2021-08-09 07:51] VITALS: BP 146/70
[2021-08-09] MEDS: PRENATAL VITAMIN TABLET PO SCH (07:51)
[2021-08-09] MEDS: THIAMINE 100 MG TABLET PO SCH (07:51)
[2021-08-09] MEDS: METOPROLOL SUCCINATE 25 MG TABLET PO SCH (07:51)
[2021-08-09] MEDS: amLODIPine 5 MG TABLET PO SCH (07:51)
--- NOTE | 2021-08-09 09:30 | Discharge Plan ---
"Discharge Plan for SNF / [facility] - Discharge Plan And Transition Orders Problem Reviewed?: Yes Disposition: 03 SNF DC/Xfer Condition: Stable Allergies and Adverse Reactions: Allergies Allergy/AdvReac Type Severity Reaction Status Date / Time levofloxacin [From Levaquin] Allergy Severe Hallucinati Verified 08/02/21 17:54 ons erythromycin base Allergy Intermediate Nausea/EMES Verified 08/02/21 17:54 [Erythromycin Base] IS Sulfa (Sulfonamide Allergy Intermediate UNKNOWN Verified 08/02/21 17:54 Antibiotics) Macrolide Antibiotics Allergy nausea/emes Verified 08/02/21 17:54 is Health Concerns: AMS, insomnia, hx of prostate cancer, alcohol abuse, HTN Plan of Treatment: pt's mental status return to his baseline with easy forgetful. His MRI and CT of head studies show no finding for acute process. It is important to avoid inadvertently taken Ambien or lorazepam with drinking multiple glasses of wine. Pt may followup with Oncologist for his prostate cancer, may resume home medication schedule Add amlodipine for his blood pressure control, resume his home metoprolol. Care Goals: Stabilization and improvement of pt's medical conditions Assessment: Discussed the care plan with patient and his daughter, answered their questions, they understood - SNF / [facility] Transition Orders Admit to (Facility): [facility] Under the care of (Name): Rajani Pastrana Discharge Diagnosis: AMS, insomnia, hx of prostate cancer, alcohol abuse, HTN Medicare Certification Statement: I certify that Post Hospital nursing home care is medically necessary on a continuing basis for any of the conditions for which she/he is receiving care during hospitalization. Notify PCP of admission and forward orders to primary provider for signature. Weight on admission and: Daily Call PCP immediately if weight increases by: 2 kg Other Notification Orders: Call PCP immediately if patient develops dyspnea, chest pain/tightness or edema. House Bowel Program: Yes Additional Bowel Program Orders: If no BM after 2 days, nurse may give M.O.M. 30ml PO PRN and/or ducolax Supp 1 KS and/or CATHERINE 250mg P.O., and/or senna 1-2 tabs PO. On day 3 nurse may give repeat above order until residents constipation is resolved. Annual Influenza Vaccine (between May 31 and December 28): Yes Two-step PPD per [facility] [phone] or approved exception documents: Yes Treatments & Other Orders: pt's mental status return to his baseline with easy forgetful. His MRI and CT of head studies show no finding for acute process. It is important to avoid inadvertently taken Ambien or lorazepam with drinking multiple glasses of wine. Pt may followup with Oncologist for his prostate cancer, may resume home medication schedule. Add amlodipine for his blood pressure control, resume his home metoprolol. Medication Orders: PLEASE REFER TO THE DISCHARGE MEDICATION LIST. Insulin Orders?: No - Medications New Prescriptions: diphenhydrAMINE [Benadryl] 25 mg PO QPM PRN #30 cap PRN Reason: Insomnia amLODIPine [Norvasc] 5 mg PO DAILY #30 tablet Pnv No.95/Ferrous Fum/Folic AC [ Tablet] 1 each PO DAILY #30 tablet Thiamine [Vitamin B-1] 100 mg PO DAILY #30 tablet - Diet Type: Geriatric Texture: Regular Liquids: Thin May have monthly special meal: Yes - Therapies | Activity Rehabilitation Potential: Maximize functional status Activity: Activity as Tolerated Additional Instructions: You may follow-up with your PCP in 1 to 2 weeks."
[2021-08-09 10:19] LABS: BASOPHILS # (AUTO) 0.1 10^3/uL (0.0-0.1); BASOPHILS % (AUTO) 0.7 %; EOSINOPHILS # (AUTO) 0.1 10^3/uL (0.0-0.7); EOSINOPHILS % (AUTO) 0.8 %; HCT - HEMATOCRIT 43.7 % (42.0-52.0); LYMPHOCYTES # (AUTO) 1.7 10^3/uL (1.5-3.5); LYMPHOCYTES % (AUTO) 17.8 %; MEAN CORPUSCULAR HEMOGLOBIN 33.8 pg (27.0-31.0); MEAN CORPUSCULAR HGB CONC 34.3 g/dL (32.0-36.0); MEAN CORPUSCULAR VOLUME 98.4 fL (80.0-94.0); MEAN PLATELET VOLUME 8.1 fL (7.4-11.4); MONOCYTES # (AUTO) 0.6 10^3/uL (0.0-1.0); MONOCYTES % (AUTO) 5.8 %; NEUTROPHILS # (AUTO) 7.3 10^3/uL (1.5-6.6); NEUTROPHILS % (AUTO) 74.6 %; PLT - PLATELET COUNT 216 10^3/uL (130-450); RED BLOOD COUNT 4.44 10^6/uL (4.70-6.10); RED CELL DISTRIBUTION WIDTH 13.4 % (12.0-15.0); WHITE BLOOD COUNT 9.8 x10^3/uL (4.8-10.8)
--- NOTE | 2021-08-09 11:15 | DISCHARGE SUMMARY ---
Discharge Summary Admit Date: 08/02/21 Discharge Date: 08/09/21 Discharging Provider: Sterling Bailey Primary Care Provider: KARLY Mariano Condition at Discharge: Stable Discharge Disposition: SNF DC/Xfer Discharge Facility [facility]: [facility] - DIAGNOSES Discharge Diagnoses with Status of Each Condition: (1) Altered mental status resolved and returned to her baseline. pt is alert, and has clear conversation and appropriate answer to my questions at the morning. CT and MRI of brain reveals no acute process. pt may avoid inadvertently taken Ambien or lorazepam with drinking multiple glasses of wine. pt's home Ambien and lorazepam are holding, followup with pt's PCP on 1-2 weeks. (2) Insomnia pt may avoid lorazepam and Ambien. Using Benadryl as needed. (3) History of prostate cancer He can follow-up with his oncologist on an outpatient basis. resume home meds (4) Alcohol abuse pt is willing to reduce even stop drinking alcohol as he report. and Vitamin B1 are prescribed for pt (5) Hypertension slight elevated BP, prescribed new amlodipine for pt, and resume home Toprol-XL. - HPI History of Present Illness: refer from Dr. Alvarado's HPI on 08/02/21 Patient is an 89-year-old male who lives alone at home but has a caregiver who stays at nights and another who comes in every couple of days to check on him during the day. He lives in [place] and has been a now for 14 years. He has a brother who lives in [place]. He was brought in by EMS. According to EMS he has been altered for several days. His brother reports that he has been altered for about 4 days. He is normally very alert and orietned X4, intelligent, able to carry out a conversation without difficulty and able to take care of himself. Per the ED physician's note: "Patient's caregiver arrived And I spoke with her at length. She states that he lives alone, is usually alert and oriented. 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 She states that a few weeks ago he did have transient altered mental status but this seemed to resolve quickly. He did have several falls, but x-rays were performed by his doctor and no fractures found. He has not been complaining of any abdo jose pain. Has not had any diarrhea or constipation. No urinary symptoms that she is aware of. She states that this is very out of character. He had been on Ambien but ran out and was changed over to either amitriptyline or nortriptyline. He is also on Ativan at home." At bedside the patient does not respond to any commands. He appeared to be resting comfortably. With tactile stimuli he opens his eyes. He moves all extremities but not to command. There is no focal neurologic deficit. He has bruises on his face legs and. He also has a rash on his back. Further history is very limited due to patient's current altered mental status. - HOSPITAL COURSE Hospital Course: Patient was admitted for AMS, altered mental status. Patient likely take over dosage of Ativan and Ambien at home, plus pt has hx of alcohol abuse, and drink wine every night. Patient had CT and MRI of brain which show no acute process. After we hold patient home meds Ativan and Ambien, Patient's mental status gradually returned to his baseline. Patient had PT and OT evaluation and treatment in hospital. nozzle and sleeve worker tried to help find Respite care for pt as well. Patient is discharged with hemodynamic stable condition. - ALLERGIES Allergies/Adverse Reactions: Allergies Allergy/AdvReac Type Severity Reaction Status Date / Time levofloxacin [From Levaquin] Allergy Severe Hallucinati Verified 08/02/21 17:54 ons erythromycin base Allergy Intermediate Nausea/EMES Verified 08/02/21 17:54 [Erythromycin Base] IS Sulfa (Sulfonamide Allergy Intermediate UNKNOWN Verified 08/02/21 17:54 Antibiotics) Macrolide Antibiotics Allergy nausea/emes Verified 08/02/21 17:54 is - MEDICATIONS Home Medications: Ambulatory Orders Medication Instructions Recorded Confirmed Metoprolol Succinate 25 mg PO DAILY 04/28/13 08/03/21 Atorvastatin [Lipitor] 20 mg PO QPM 12/28/13 08/03/21 Bicalutamide [Casodex] 50 mg PO DAILY 12/28/13 08/03/21 Leuprolide [Lupron] 45 mg IM Q180D 08/03/21 08/03/21 Pnv No.95/Ferrous Fum/Folic AC 1 each PO DAILY #30 tablet 08/09/21 [ Tablet] Thiamine [Vitamin B-1] 100 mg PO DAILY #30 tablet 08/09/21 amLODIPine [Norvasc] 5 mg PO DAILY #30 tablet 08/09/21 diphenhydrAMINE [Benadryl] 25 mg PO QPM PRN #30 cap 08/09/21 - PHYSICAL EXAM AT DISCHARGE General Appearance: positive: No acute distress, Alert. negative: Lethargic Eyes Bilateral: positive: Normal inspection, PERRL, No lid inflammation ENT: positive: ENT inspection nml, No signs of dehydration. negative: Purulent nasal drainage Neck: positive: Nml inspection, Trachea midline. negative: Thyromegaly, Tra cheal deviation Respiratory: positive: Chest non-tender, No respiratory distress. negative: Wheezes, Rales Cardiovascular: positive: Regular rate & rhythm, No murmur. negative: Tachycardia, Bradycardia, Systolic murmur, Diastolic murmur Peripheral Pulses: positive: 2+ Abdomen: positive: Non-tender, Nml bowel sounds, No distention. negative: Tenderness Back: positive: Nml inspection Skin: positive: Color nml, Warm, Dry. negative: Cyanosis Extremities: positive: Non-tender, Nml appearance. negative: Calf tenderness Neurologic/Psychiatric: positive: Sensation nml, Mood/affect nml, Disoriented to time. negative: Disoriented to person, Disoriented to place, Sensory loss, Facial droop, Slurred/abnml speech, Depressed mood/affect - LABS Result Diagrams: 08/09/21 10:14 08/09/21 05:05 - FOLLOW UP Follow Up: pt's mental status return to his baseline with easy forgetful. His MRI and CT of head studies show no finding for acute process. It is important to avoid inadvertently taken Ambien or lorazepam with drinking multiple glasses of wine. Pt may followup with Oncologist for his prostate cancer, may resume home medication schedule Add amlodipine for his blood pressure control, resume his home metoprolol. You may follow-up with your PCP in 1 to 2 weeks. - TIME SPENT Time Spent in Discharge (Minutes): 30
[2021-08-09 11:54] LABS: CORONAVIRUS 229E-RESP PCR NOT DETECTED; CORONAVIRUS HKU1-RESP PCR NOT DETECTED; CORONAVIRUS NL63-RESP PCR NOT DETECTED; CORONAVIRUS OC43-RESP PCR NOT DETECTED; HUMAN METAPNEUMOVIRUS NOT DETECTED; INFLUENZA A- RESP PCR PANEL NOT DETECTED; RHINOVIRUS/ENTEROVIRUS NOT DETECTED; SARS-CoV-2 -RESP PCR PANEL NOT DETECTED
[2021-08-09 11:55] LABS: B. PARAPERTUSSIS- RESP PCR PAN NOT DETECTED; B. PERTUSSIS- RESP PCR PANEL NOT DETECTED; C. PNEUMONIAE- RESP PCR PANEL NOT DETECTED; INFLUENZA B - RESP PCR PANEL NOT DETECTED; M. PNEUMONIAE- RESP PCR PANEL NOT DETECTED; PARAINFLUENZA VIRUS 1 NOT DETECTED; PARAINFLUENZA VIRUS 2 NOT DETECTED; PARAINFLUENZA VIRUS 3 NOT DETECTED; PARAINFLUENZA VIRUS 4 NOT DETECTED; RSV- RESP PCR PANEL NOT DETECTED
== END 2021-08-09 12:30 ==
LOC: EDBD → EDUNIT# → SUPCPDRO 17:43 → ED 17:43 → MS2 20:48
PROVIDERS: ADMIT Internal Medicine; ATTEND Nurse Practitioner Gerontology
DX: R41.82 Altered mental status, unspecified (principal); F10.10 Alcohol abuse, uncomplicated; G47.00 Insomnia, unspecified; I10 Essential (primary) hypertension; G31.84 Mild cognitive impairment of uncertain or unknown etiology; N40.1 Benign prostatic hyperplasia with lower urinary tract symptoms; R33.8 Other retention of urine; C61 Malignant neoplasm of prostate; E78.5 Hyperlipidemia, unspecified; F32.9 Major depressive disorder, single episode, unspecified; F41.9 Anxiety disorder, unspecified; R53.1 Weakness; H54.7 Unspecified visual loss; H91.90 Unspecified hearing loss, unspecified ear; Z79.899 Other long term (current) drug therapy; Z66 Do not resuscitate; Z91.81 History of falling; Z20.822 Contact with and (suspected) exposure to COVID-19; Z79.82 Long term (current) use of aspirin
CPT/HCPCS: 36415; 51701; 70450; 70551; 71045; 80048; 80053; 80306; 80307; 81003; 83605; 83690; 84443; 85025; 87040; 87631; 93005; 96374; 96375; 96376; 97116; 97162; 97165; 97530; 99285; A9270; G0378; G0480; J2060; 0202U; 80320; 80329; 81001; 87086

== ENCOUNTER 2021-12-18 13:50 | Outpatient (CLI) | payer MEDICARE | END 2021-12-18 13:51 | disposition home or self-care (01) | LOC: LAB 13:50 | PROVIDERS: ATTEND Urology | DX: C61 Malignant neoplasm of prostate (principal) | CPT/HCPCS: 36415; 84153 ==

== ENCOUNTER 2022-06-22 13:47 | Outpatient (CLI) | payer MEDICARE | END 2022-06-22 13:48 | disposition home or self-care (01) | LOC: LAB 13:47 | PROVIDERS: ATTEND Urology | DX: C61 Malignant neoplasm of prostate (principal) | CPT/HCPCS: 36415; 84153 ==